=== PATIENT | male | born 1945 | race Caucasian/White ===

== ENCOUNTER 2018-05-10 17:33 | Inpatient (IN) | payer MEDICARE, OTHER ==
[~2018-05-10] VITALS: Ht 154.9 cm; Wt 64.0 kg
[2018-05-10] MEDS ORDERED: OLAN10TA3 PO (17:49)
[2018-05-10] MEDS ORDERED: TEMA7.5C2 PO (17:49)
[2018-05-10] MEDS ORDERED: LORA-258 PO (17:49)
[2018-05-10] MEDS ORDERED: DIVA250T4 PO (17:49)
[2018-05-10] MEDS ORDERED: ACET-2154 PO (17:49)
[2018-05-10] MEDS ORDERED: OLAN5TAB3 PO (17:49)
[2018-05-10] MEDS ORDERED: ACET325T53 PO (17:49)
[2018-05-10] MEDS ORDERED: LIDOCAINE 2% (UROJET) 10 ML JELLY MM ONE (17:55)
[2018-05-10] MEDS ORDERED: HYDROMORPHONE 2 MG/1 ML DISP.SYRIN ONE (17:58)
[2018-05-10 18:08] LABS: BASOPHILS % (AUTO) 0.5 % (0.0-2.0); EOSINOPHILS # (AUTO) 0.1 K/uL (0.0-0.7); EOSINOPHILS % (AUTO) 1.5 % (0.0-7.0); HEMATOCRIT 31.8 % (36.7-47.1); LYMPHOCYTES % (AUTO) 40.9 % (20.5-51.5); MEAN CORPUSCULAR HEMOGLOBIN 35.3 uug (23.8-33.4); MEAN CORPUSCULAR HGB CONC 35 g/dL (32.5-36.3); MEAN CORPUSCULAR VOLUME 101.6 fL (73.0-96.2); MONOCYTES # (AUTO) 0.4 K/uL (2.0-10.0); MONOCYTES % (AUTO) 8.3 % (0.0-11.0); NEUTROPHILS # (AUTO) 2.4 K/uL (1.8-8.9); NEUTROPHILS % (AUTO) 48.8 % (38.5-71.5); PLATELET COUNT (AUTO) 114 K/uL (152-348); RED BLOOD CELL COUNT(AUTO) 3.13 MIL/uL (4.06-5.63); WHITE BLOOD COUNT (AUTO) 4.9 K/uL (3.6-10.2)
[2018-05-10 18:12] LABS: CARBON DIOXIDE 28 mmol/L (21-32); CHLORIDE 104 mmol/L (98-107); CREATININE 1.1 mg/dL (0.6-1.3); GLUCOSE 91 mg/dL (74-106); UREA NITROGEN, BLOOD 17 mg/dL (7-18)
[2018-05-10 18:25] LABS: ACETAMINOPHEN < 2.0 ug/mL (10-30); ALANINE AMINOTRANSFERASE 21 U/L (16-63); ALKALINE PHOSPHATASE 54 U/L (50-136); ASPARTATE AMINOTRANSFERASE 18 U/L (15-37); BILIRUBIN,DIRECT 0.1 mg/dL (0.0-0.2); BILIRUBIN,TOTAL 0.4 mg/dL (0.2-1.0); TOTAL PROTEIN, SERUM 6.4 g/dL (6.4-8.2)
[2018-05-10 18:29] LABS: ETHANOL < 3 MG/DL (0-0)
--- NOTE | 2018-05-10 18:35 | NUR ---
[facility] provided for pt per request
--- NOTE | 2018-05-10 18:40 | NUR ---
pt transfered to mhu in stable condition
[2018-05-10 19:30] VITALS: BP 124/57
[2018-05-10] MEDS ORDERED: MAG HYDROX/AL HYDROX/SIMETH 30 ML LIQUID UDC PO PRN (20:15)
[2018-05-10] MEDS ORDERED: TEMAZEPAM 7.5 MG CAPSULE PO PRN (20:15)
[2018-05-10] MEDS ORDERED: ACETAMINOPHEN 325 MG TABLET PO PRN (20:15)
[2018-05-10] MEDS ORDERED: MAGNESIUM HYDROXIDE 30 ML LIQUID UDC PO PRN (20:15)
[2018-05-10] MEDS ORDERED: LORAZEPAM 0.5 MG TABLET PO PRN (20:15)
--- NOTE | 2018-05-10 22:00 | NUR ---
ADDENDUM/ pt was recently admitted to [facility] unit from 04/26 - 05/03/18.
--- NOTE | 2018-05-10 22:00 | NUR ---
received to care, at start of shift, a transfer from [facility], a transfer from the emergency room, on a 72 hour hold for DTO/gravely disabled. according to the hold, he has been "charging" into other residents with his wheelchair, despite attempts by staff, to redirect his behavior. he also eloped through the locked doors of his unit, and has no means of providing self care. pt has a history of schizophrenia and bipolar disorder, and is wheel chair bound, due to a right sided below the knee amputation, which happened when he was 22 y/o, while serving in the . upon arrival, he was pleasant. cooperative with interview and assessment, but refused to sign any papers. he stated the reason was his brother, maria antonia, is his conservator, and has to sign for him. (his brother was notified via telephone of the admission, and verified that he was the patients conservator, and stated he would bring the documentation in, tomorrow) pt had no recollection of why he was sent here, and even denied any knowledge of the reported incidents. after interview, he was assisted with a shower, and helped to bed. as of 2199, he remains asleep. no distress noted. will continue to monitor closely.
--- NOTE | 2018-05-11 05:30 | NUR ---
pt is now awake. slept 7.25 hours, total. currently watching tv. no distress noted.
[2018-05-11 07:19] LABS: BILIRUBIN,TOTAL 0.5 mg/dL (0.2-1.0); CREATININE 1.1 mg/dL (0.6-1.3); POTASSIUM 3.8 mmol/L (3.5-5.1); TOTAL PROTEIN, SERUM 6.8 g/dL (6.4-8.2)
[2018-05-11 08:00] VITALS: BP 146/69
[2018-05-11 16:01] VITALS: BP 108/44
[2018-05-11] MEDS: DIVALPROEX 250 MG TABLET.DR PO SCH (18:14)
[2018-05-11 19:30] VITALS: BP 132/57
[2018-05-11] MEDS: OLANZAPINE 5 MG TABLET PO SCH (21:14)
[2018-05-11] MEDS: DIVALPROEX 500 MG TABLET.DR PO SCH (21:14)
--- NOTE | 2018-05-11 22:00 | NUR ---
received to care, up in w/c, highly visible on unit, pleasant upon approach. no agitation or aggression, noted. interacts minimally with peers, but well with program staff. compliant with medications, and staff direction. as of 2199, he appears to be asleep, in bed. no distress noted. will continue to monitor closely.
--- NOTE | 2018-05-12 06:00 | NUR ---
slept 8.0 hours, total. continues to sleep. no distress noted.
[2018-05-12 08:00] VITALS: BP 122/86
[2018-05-12] MEDS: OLANZAPINE 5 MG TABLET PO SCH ×2 (08:54→21:04)
[2018-05-12] MEDS: DIVALPROEX 500 MG TABLET.DR PO SCH ×2 (08:54→21:04)
--- NOTE | 2018-05-12 11:31 | NUR ---
Initial DC Plan: Patient currently resides at [facility] [[address], [place] [address]; ]. Patient's brother/conservator Fuad [[phone]] stated he would like patient to return to his previous assisted living [facility] upon discharge. SW will follow up with MD, patient, and patient's brother to discuss most appropriate discharge plans. SW will form a safe and proper discharge.
[2018-05-12 16:00] VITALS: BP 122/57
[2018-05-12] MEDS: DIVALPROEX 250 MG TABLET.DR PO SCH (17:03)
--- NOTE | 2018-05-12 17:51 | NUR ---
Gps/Labor Training Manager- Had been cooperative and pleasant, compliance noted with his routine meds. making needs known, safety reviewed and emphasized.
[2018-05-12 20:20] VITALS: BP 120/58
--- NOTE | 2018-05-12 21:59 | NUR ---
received to care, asleep, in bed, but easy to awaken and arouse. compliant with medications, and staff direction. behavior is appropriate for the situation. as of 2158, he appears to be asleep. no distress noted. will continue to monitor closely.
--- NOTE | 2018-05-13 06:00 | NUR ---
slept 8 hours, total. is now awake. assisted with AM care, and shower. currently watching tv. remains calm, and compliant. no distress noted.
[2018-05-13 07:30] VITALS: BP 119/49
[2018-05-13 07:31] LABS: CREATININE 1.2 mg/dL (0.6-1.3); MAGNESIUM 1.6 mg/dL (1.8-2.4); POTASSIUM 3.8 mmol/L (3.5-5.1)
[2018-05-13 07:54] LABS: BASOPHILS % (AUTO) 0.3 % (0.0-2.0); EOSINOPHILS # (AUTO) 0.1 K/uL (0.0-0.7); EOSINOPHILS % (AUTO) 2.7 % (0.0-7.0); LYMPHOCYTES # (AUTO) 2.4 K/uL (20.0-40.0); LYMPHOCYTES % (AUTO) 50.5 % (20.5-51.5); MEAN CORPUSCULAR HEMOGLOBIN 35.3 uug (23.8-33.4); MEAN CORPUSCULAR HGB CONC 35 g/dL (32.5-36.3); MEAN CORPUSCULAR VOLUME 101.8 fL (73.0-96.2); MONOCYTES # (AUTO) 0.3 K/uL (2.0-10.0); MONOCYTES % (AUTO) 6.9 % (0.0-11.0); NEUTROPHILS # (AUTO) 1.9 K/uL (1.8-8.9); NEUTROPHILS % (AUTO) 39.6 % (38.5-71.5); PLATELET COUNT (AUTO) 122 K/uL (152-348); RED BLOOD CELL COUNT(AUTO) 3.52 MIL/uL (4.06-5.63); WHITE BLOOD COUNT (AUTO) 4.8 K/uL (3.6-10.2)
[2018-05-13 08:12] LABS: HEMATOCRIT 35.9 % (36.7-47.1); HEMOGLOBIN 12.4 g/dL (12.5-16.3)
[2018-05-13] MEDS: OLANZAPINE 5 MG TABLET PO SCH ×2 (08:30→20:23)
[2018-05-13] MEDS: DIVALPROEX 500 MG TABLET.DR PO SCH ×2 (08:30→20:23)
[2018-05-13] MEDS ORDERED: MAGNESIUM OXIDE 400 MG TABLET PO ONE (15:15)
[2018-05-13 15:26] VITALS: BP 119/49
[2018-05-13] MEDS: DIVALPROEX 250 MG TABLET.DR PO SCH (16:46)
--- NOTE | 2018-05-13 17:50 | NUR ---
Gps/Or Nurse Manager- Was able to take a nap this afternoon, was able to stay up for dinner, denies any discomfort, was in good spirit, singing in the dinning room, compliant with his routine med. no agitation noted.
[2018-05-13] MEDS: ATORVASTATIN 10 MG TABLET PO SCH (20:23)
[2018-05-13 21:02] VITALS: BP 114/56
--- NOTE | 2018-05-14 06:01 | NUR ---
GPS: Remain calm and cooperative with medications and care. assisted with adl's. no behavior problem noted. slept 8 hours, total. is now awake. assisted with AM care, and shower. no distress noted.
[2018-05-14 07:30] VITALS: BP 124/63
[2018-05-14] MEDS: DIVALPROEX 500 MG TABLET.DR PO SCH ×2 (09:07→20:52)
[2018-05-14] MEDS: OLANZAPINE 5 MG TABLET PO SCH ×2 (09:07→20:52)
[2018-05-14 16:53] VITALS: BP 126/73
[2018-05-14] MEDS: DIVALPROEX 250 MG TABLET.DR PO SCH (17:13)
--- NOTE | 2018-05-14 18:02 | NUR ---
[id number] labile and singing and talking politics up in wheel chair , continue to monitor for safety
[2018-05-14 20:00] VITALS: BP 117/72
[2018-05-14] MEDS: ATORVASTATIN 10 MG TABLET PO SCH (20:52)
--- NOTE | 2018-05-14 21:00 | NUR ---
PT EASILY AROUSABLE, RICKEY AND COOPERATIVE. TAKE MEDICATION. PT SHOWS NO SIGNS OF DISTRESS. WILL CONTINUE TO MONITOR.
--- NOTE | 2018-05-15 06:40 | NUR ---
PT SLEPT THROUGHOUT THE SHIFT. PT SHOWS NO SIGNS OF DISTRESS. PT CALM AND COOPERATIVE. SAFETY AND COMFORT PROVIDED. WILL ENDORSE TO DAYSHIFT NURSE.
[2018-05-15 07:30] VITALS: BP 110/60
[2018-05-15] MEDS: DIVALPROEX 500 MG TABLET.DR PO SCH ×2 (08:57→20:15)
[2018-05-15] MEDS: OLANZAPINE 5 MG TABLET PO SCH ×2 (08:58→20:15)
[2018-05-15 15:15] VITALS: BP 123/49
[2018-05-15] MEDS: DIVALPROEX 250 MG TABLET.DR PO SCH (16:49)
[2018-05-15 20:00] VITALS: BP 115/64
[2018-05-15] MEDS: ATORVASTATIN 10 MG TABLET PO SCH (20:15)
--- NOTE | 2018-05-15 20:50 | NUR ---
PT CALM, COOPERATIVE. COMPLIANT WITH MEDICATION. PT SLIGHTLY AGITATED WHEN TALKING ON THE PHONE.INTERACTS WHEN ENGAGED. PT SHOWS NO SIGNS OF DISTRESS. WILL CONTINUE TO MONITOR.
--- NOTE | 2018-05-16 05:44 | NUR ---
PT SLEPT THROUGHOUT THE SHIFT. PT SHOWS NO SIGNS OF DISTRESS. COMPLIANT WITH MEDICATION. SAFETY PROVIDED. WILL ENDORSE TO DAYSHIFT NURSE.
[2018-05-16 07:30] VITALS: BP_SYST 111; BP_SYST 98; BP_DIAS 49; BP_DIAS 61
[2018-05-16] MEDS: DIVALPROEX 500 MG TABLET.DR PO SCH ×2 (08:29→20:46)
[2018-05-16] MEDS: OLANZAPINE 5 MG TABLET PO SCH ×2 (08:29→20:46)
[2018-05-16 16:25] VITALS: BP 116/59
[2018-05-16] MEDS: DIVALPROEX 250 MG TABLET.DR PO SCH (18:22)
[2018-05-16 19:30] VITALS: BP 116/42
--- NOTE | 2018-05-16 19:50 | NUR ---
RECEIVED PATIENT IN HIS ROOM IN BED. HE IS NOTED A/O X 2, UNCOOPERATIVE, EASILY IRRITABLE, LOW MOOD, LABILE BX. BLUNTED AFFECT. REFUSED TO ANSWER QUESTIONS. HE ALSO STATED, "MEDICATIONS NEVER WORK FOR ME, HAVE NEVER WORK FOR ME". ATTEMPTED TO REASSURED, REDIRECT PATIENT; HOWEVER, HE STATED, "GO AWAY". SAFETY WAS EMPHASIS. WILL CONTINUE TO MONITOR CLOSELY.
[2018-05-16] MEDS: ATORVASTATIN 10 MG TABLET PO SCH (20:46)
[2018-05-17 07:30] VITALS: BP 122/48
[2018-05-17] MEDS: OLANZAPINE 5 MG TABLET PO SCH ×2 (08:24→21:07)
[2018-05-17] MEDS: DIVALPROEX 500 MG TABLET.DR PO SCH ×2 (08:24→21:07)
[2018-05-17 16:23] VITALS: BP 104/52
[2018-05-17] MEDS: DIVALPROEX 250 MG TABLET.DR PO SCH (16:33)
[2018-05-17 19:47] VITALS: BP 119/49
--- NOTE | 2018-05-17 20:00 | NUR ---
RECEIVED PATIENT IN HIS ROOM IN BED. HE IS NOTED ASLEEP BUT EASILY AROUSABLE. HE IS A/O X 2, WITHDRAWN, LOW MOOD, BLUNTED AFFECT. FAIR INSIGHT NOTED TO THE REAON FOR HIS ADMISSION. HE STATED, "I SHOULD NOT BE HERE, BUT I AM LEAVING WEDNESDAY". PATIENT REMAINS MEDICATION COMPLIANT AT THIS TIME. SAFETY WAS EMPHASIS. WILL CONTINUE TO MONITOR CLOSELY.
[2018-05-17] MEDS: ATORVASTATIN 10 MG TABLET PO SCH (21:07)
--- NOTE | 2018-05-18 06:30 | NUR ---
PT SLEPT FOR APPROX 8 HRS THROUGH THE NIGHT. NO AGGRESSIVE/COMBATIVE BX WAS NOTED DURING THE SHIFT. PT REMAINS COMPLIANT WITH MEDICATION REGIMENT, DIET AND PLAN OF CARE.
[2018-05-18 08:00] VITALS: BP 118/56
[2018-05-18] MEDS: OLANZAPINE 5 MG TABLET PO SCH ×2 (09:44→20:12)
[2018-05-18] MEDS: CHOLECALCIFEROL 400 UNITS TABLET PO SCH (09:44)
[2018-05-18] MEDS: DIVALPROEX 500 MG TABLET.DR PO SCH ×2 (09:44→20:12)
[2018-05-18 16:00] VITALS: BP 108/52
[2018-05-18] MEDS: DIVALPROEX 250 MG TABLET.DR PO SCH (17:14)
[2018-05-18 20:10] VITALS: BP 117/56
[2018-05-18] MEDS: ATORVASTATIN 10 MG TABLET PO SCH (20:12)
--- NOTE | 2018-05-18 22:00 | NUR ---
received to care, up in w/c, highly visible on unit, pleasant upon approach. compliant with medications, and staff direction. as of 2199, he appears to be asleep, in bed. no distress noted. will continue to monitor closely.
--- NOTE | 2018-05-19 06:00 | NUR ---
slept 6.5 hours, total. is now awake. assisted with AM care, and shower. currently watching tv. remains calm, and compliant. no distress noted.
--- NOTE | 2018-05-19 07:00 | NUR ---
RECEIVED PATIENT IN WHEELCHAIR, NO ACUTE DISTRESS NOTED. ALERT AND ORIENTED X 3, INDEPENDENT WITH MEALS AND ADLS. NO SI NOTED, COMPLIANT WITH MEDS AND CARE. NO S/S OF PYCH BEHAVIOR AT THIS TIME. COMFORT MEASURES PROVIDED,. SAFETY PRECS OBSERVED AT ALL TIMES WILL CONTINUE TO MONITOR CLOSELY.
[2018-05-19 07:30] VITALS: BP 127/70
[2018-05-19] MEDS: CHOLECALCIFEROL 400 UNITS TABLET PO SCH (08:03)
[2018-05-19] MEDS: DIVALPROEX 500 MG TABLET.DR PO SCH ×2 (08:03→20:49)
[2018-05-19] MEDS: OLANZAPINE 5 MG TABLET PO SCH ×2 (08:03→20:50)
[2018-05-19] MEDS: DIVALPROEX 250 MG TABLET.DR PO SCH (16:08)
[2018-05-19 16:22] VITALS: BP 112/60
--- NOTE | 2018-05-19 18:59 | NUR ---
PATIENT IN ACTIVITY ROOM, NO ACUTE DISTRESS NOTED. ATE DINNER, CONTINUES TO BE COMPLIANT WITH MEDICATION AND CARE. DENIES SI AT THIS TIME. ALL NEEDS ATTENDED AND ANTICIPATED. WILL CONTINUE TO MONITOR CLOSELY.
[2018-05-19] MEDS: ATORVASTATIN 10 MG TABLET PO SCH (20:50)
[2018-05-19 21:11] VITALS: BP 121/66
--- NOTE | 2018-05-19 22:00 | NUR ---
received to care, asleep, in bed, but easy to awaken and arouse. compliant with medications, bedtime snack, and staff direction. behavior is appropriate for the situation. as of 2200, he appears to be asleep. no distress noted. will continue to monitor closely.
--- NOTE | 2018-05-20 06:00 | NUR ---
slept 8.0 hours, total.
[2018-05-20 07:30] VITALS: BP 99/68
[2018-05-20] MEDS: DIVALPROEX 500 MG TABLET.DR PO SCH (08:13)
[2018-05-20] MEDS: OLANZAPINE 5 MG TABLET PO SCH (08:14)
[2018-05-20] MEDS: CHOLECALCIFEROL 400 UNITS TABLET PO SCH (08:14)
--- NOTE | 2018-05-20 11:50 | NUR ---
DC Note: Patient will be discharging to [facility] [[address] [place] [address]; ] via private transportation. SW spoke with Brooke [[phone]] from [facility] who confirmed patient has been accepted and will order picker patient around 4:30pm. Patient is aware and agreeable to discharge plans. Patient's brother/LPS Conservator Fuad [[phone]] is aware and agreeable to discharge plans. Patient will follow up with his coat joiner lockstitch Dr. Christine and psychiatrist Dr. Oswaldo West at the [facility] [[address] [address]; ]. Patient will also follow up with psychiatrist Dr. Rapp at [facility]. Patient was provided with additional outpatient mental health resources to [facility] , Lucy Barboza , and the National Suicide Prevention Lifeline .
--- NOTE | 2018-05-20 14:09 | NUR ---
Gps/Dental Detail Representative- Called [facility], spoked to Brooke, she claimed she does not need report, she has all the records and pertinent data for the patient, will be in to supervisor picking crew patient around 1630 -1700 , patient was informed.
[2018-05-20 15:39] VITALS: BP 135/60
--- NOTE | 2018-05-20 16:00 | NUR ---
Firearms Report: SIDDHARTHA submitted Mental Health Report to [facility]J on 05/20.
[2018-05-20] MEDS: DIVALPROEX 250 MG TABLET.DR PO SCH (16:22)
--- NOTE | 2018-05-20 16:50 | NUR ---
Gps/Raphael Cox from [facility] in to bead picker patient, all belongings given back to patient including $5.00 bill found in his chart . Discharged instructions reviewed with Brooke and patient informed of the prescriptions , both verbalized understanding. Patient in good spirit, no complaints noted.
== END 2018-05-20 16:50 | DRG 885 ==
LOC: ER 17:36 → GPS 18:34
PROVIDERS: ADMIT Psychiatry & Neurology Psychiatry; ATTEND Internal Medicine
DX: F31.9 Bipolar disorder, unspecified (principal); F20.9 Schizophrenia, unspecified; Z89.511 Acquired absence of right leg below knee; E83.42 Hypomagnesemia; E83.52 Hypercalcemia; E78.5 Hyperlipidemia, unspecified; D63.8 Anemia in other chronic diseases classified elsewhere; E55.9 Vitamin D deficiency, unspecified; F29 Unspecified psychosis not due to a substance or known physiological condition
CPT/HCPCS: 36415; 80164; 83735; 83970; 84100; 85025; A4663; G0480; G0480-TC; J1170; J3490

== ENCOUNTER 2019-03-22 18:06 | Inpatient (IN) | payer MEDICARE, OTHER ==
[~2019-03-22] VITALS: Ht 182.9 cm; Wt 76.2 kg
[~2019-03-22 18:06] MED LIST: ACET-2154 PO; ACET325T53 PO
[2019-03-22] MEDS ORDERED: IV NORMAL SALINE 1000 ML BAG IV ONE (18:30)
[2019-03-22] MEDS ORDERED: LEVOFLOXACIN 750MG/D5W 150 ML IV ONE ×2 (18:30→20:11)
[2019-03-22] MEDS ORDERED: PIPERACILLIN SODIUM/TAZOBACTAM 3.375 G in IV DEXTROSE 5% 50 ML IV ONE (18:30)
[2019-03-22] MEDS ORDERED: MULT1TAB73 PO (18:48)
[2019-03-22] MEDS ORDERED: DEXT15DR6 OP (18:48)
[2019-03-22] MEDS ORDERED: VITS42.53 TP (18:48)
[2019-03-22] MEDS ORDERED: ATOR20TA PO (18:48)
[2019-03-22] MEDS ORDERED: OLAN10TA3 PO (18:48)
[2019-03-22] MEDS ORDERED: CHOL100043 PO (18:48)
[2019-03-22] MEDS ORDERED: METO25TA6 PO (18:48)
[2019-03-22] MEDS ORDERED: DIVA-78 PO (18:48)
[2019-03-22] MEDS ORDERED: OMEG100037 PO (18:48)
[2019-03-22] MEDS ORDERED: OXYB5TAB11 PO (18:48)
[2019-03-22] MEDS ORDERED: LITH300T3 PO (18:48)
[2019-03-22] MEDS ORDERED: CLON1TAB12 PO (18:48)
[2019-03-22] MEDS ORDERED: POLY255P19 PO (18:48)
[2019-03-22] MEDS ORDERED: SENN1TAB33 PO (18:48)
[2019-03-22] MEDS ORDERED: PIPERACILLIN/TAZOBACTAM/D5W 50 ML IV ONE (18:50)
[2019-03-22 18:57] LABS: BASOPHILS % (AUTO) 0.1 % (0.0-2.0); CARBON DIOXIDE 28 mmol/L (21-32); CHLORIDE 104 mmol/L (98-107); CREATININE 1.3 mg/dL (0.6-1.3); GLUCOSE 106 mg/dL (74-106); HEMATOCRIT 35.5 % (36.7-47.1); HEMOGLOBIN 11.9 g/dL (12.5-16.3); LYMPHOCYTES # (AUTO) 1.3 K/uL (20.0-40.0); LYMPHOCYTES % (AUTO) 15.6 % (20.5-51.5); MEAN CORPUSCULAR HEMOGLOBIN 35.1 uug (23.8-33.4); MEAN CORPUSCULAR HGB CONC 34 g/dL (32.5-36.3); MEAN CORPUSCULAR VOLUME 104.8 fL (73.0-96.2); MONOCYTES # (AUTO) 0.8 K/uL (2.0-10.0); MONOCYTES % (AUTO) 10.1 % (0.0-11.0); NEUTROPHILS # (AUTO) 6.1 K/uL (1.8-8.9); NEUTROPHILS % (AUTO) 74.2 % (38.5-71.5); PLATELET COUNT (AUTO) 59 K/uL (152-348); POTASSIUM 4.4 mmol/L (3.5-5.1); RED BLOOD CELL COUNT(AUTO) 3.39 MIL/uL (4.06-5.63); UREA NITROGEN, BLOOD 23 mg/dL (7-18); WHITE BLOOD COUNT (AUTO) 8.2 K/uL (3.6-10.2)
[2019-03-22 19:12] LABS: ALANINE AMINOTRANSFERASE 22 U/L (16-63); ALKALINE PHOSPHATASE 54 U/L (50-136); ASPARTATE AMINOTRANSFERASE 15 U/L (15-37); BILIRUBIN,DIRECT 0.2 mg/dL (0.0-0.2); BILIRUBIN,TOTAL 0.7 mg/dL (0.2-1.0); TOTAL PROTEIN, SERUM 6.6 g/dL (6.4-8.2)
[2019-03-22 19:23] LABS: NEUTROPHILS % (MANUAL) 63 % (42-75)
[2019-03-22 19:24] LABS: BAND % (MANUAL) 9 % (0-10); LYMPHOCYTES % (MANUAL) 17 % (20-40); MONOCYTES % (MANUAL) 11 % (2-10)
[2019-03-22 21:28] LABS: *BILIRUBIN,URIN NEGATIVE (NEGATIVE); *BLOOD, URINE 2+ (NEGATIVE); *CLARITY,URINE CLEAR (CLEAR); *COLOR,URINE YELLOW (YELLOW); *KETONES,URINE NEGATIVE (NEGATIVE); *UROBILINOGEN,URINE 0.2 E.U./dl (NORMAL); LEUKOCYTE ESTERASE ,URINE NEGATIVE (NEGATIVE); NITRITE, URINE NEGATIVE (NEGATIVE); PH,URINE 7.5 (5.0-8.0); UGLUCOSE NEGATIVE (NEGATIVE)
[2019-03-22 21:43] LABS: SQUAMOUS EPITHELIAL CELL,UR FEW /HPF (NONE SEEN); WBC,URINE 0-3 /HPF (0-3)
--- NOTE | 2019-03-22 22:01 | NUR ---
Called Gurpreet nurse from [facility] . Gurpreet states patient was sent here poor appetite and wt. lost
--- NOTE | 2019-03-23 00:11 | NUR ---
Transfered to 3rd floor Med surg via jordyn
[2019-03-23 00:26] VITALS: BP 108/46
--- NOTE | 2019-03-23 00:30 | NUR ---
Pt arrived in unit via gurney accompanied by x1 ER staff at 0005. A&O to himself and his brother. Verbally responsive and able to follow simple commands. On RA, no resp distress noted. Bowel sounds active, per pt BM current. No edema. Head to to assessment completed. AROM to BUE, right BKA stump (20 yrs old per pt), LLE with severe weakness. Slight redness noted to R BKA stump, scabbed over abrasion to left garrison, and mult skin discoloration to left AC. Will monitor for adverse changes. RFA 22g IV site in place and patent. Oriented pt to unit, staff, room, call light, and board. Spoke with Fuad Shore and informed him of pt's admission to unit. All safety precautions in place. Will cont to monitor.
--- NOTE | 2019-03-23 01:00 | NUR ---
Telephone call to [facility] [phone]. Spoke with [employer] who stated to call back in am to follow up regarding patient's immunization status.
[2019-03-23] MEDS ORDERED: OLANZAPINE 5 MG TABLET PO SCH (02:00)
[2019-03-23] MEDS ORDERED: PIPERACILLIN/TAZOBACTAM/D5W 50 ML IV SCH (02:00)
[2019-03-23] MEDS ORDERED: HYDROCODONE/APAP 10-325 MG TABLET PO PRN (02:00)
[2019-03-23] MEDS ORDERED: SENNOSIDES/DOCUSATE SODIUM TABLET PO PRN (02:00)
[2019-03-23] MEDS ORDERED: ACETAMINOPHEN 325 MG TABLET PO PRN (02:00)
[2019-03-23] MEDS ORDERED: Z GUARD REMEDY PASTE 57 GM TUBE TOP PRN (02:00)
[2019-03-23] MEDS ORDERED: ONDANSETRON 4 MG/2 ML VIAL IV PRN (02:00)
[2019-03-23] MEDS: IV NS 1000 ML 1,000 ML IV PRN ×2 (02:26→16:17)
[2019-03-23] MEDS ORDERED: PIPERACILLIN/TAZOBACTAM/D5W 50 ML IV ONE ×2 (02:30→02:55)
[2019-03-23 04:59] VITALS: BP 101/46
[2019-03-23 06:35] LABS: BASOPHILS % (AUTO) 0.1 % (0.0-2.0); EOSINOPHILS % (AUTO) 0.1 % (0.0-7.0); HEMATOCRIT 30.7 % (36.7-47.1); HEMOGLOBIN 10.3 g/dL (12.5-16.3); LYMPHOCYTES # (AUTO) 1.4 K/uL (20.0-40.0); MONOCYTES # (AUTO) 0.5 K/uL (2.0-10.0); WHITE BLOOD COUNT (AUTO) 5.7 K/uL (3.6-10.2)
[2019-03-23 06:38] LABS: LYMPHOCYTES % (AUTO) 25.3 % (20.5-51.5); MEAN CORPUSCULAR HEMOGLOBIN 35.5 uug (23.8-33.4); MEAN CORPUSCULAR HGB CONC 34 g/dL (32.5-36.3); MEAN CORPUSCULAR VOLUME 105.6 fL (73.0-96.2); MONOCYTES % (AUTO) 8.1 % (0.0-11.0); NEUTROPHILS # (AUTO) 3.8 K/uL (1.8-8.9); NEUTROPHILS % (AUTO) 66.4 % (38.5-71.5)
--- NOTE | 2019-03-23 06:45 | NUR ---
Pt in bed asleep, easily arousable to name. No s/s of acute distress noted. No adverse side effects noted to Zosyn IV and Olanzapine. RFA IV site in place and patent, infusing NS @75ml/hr and [place] well. Labs drawn as ordered. Pending results. All safety precautions in place. Will endorse to oncoming shift.
[2019-03-23 06:50] LABS: CARBON DIOXIDE 26 mmol/L (21-32); CHLORIDE 111 mmol/L (98-107); CREATININE 1.2 mg/dL (0.6-1.3); GLUCOSE 88 mg/dL (74-106); MAGNESIUM 1.8 mg/dL (1.8-2.4); PHOSPHOROUS 2.6 mg/dL (2.5-4.9); POTASSIUM 4.4 mmol/L (3.5-5.1); UREA NITROGEN, BLOOD 19 mg/dL (7-18)
[2019-03-23 06:54] LABS: PLATELET COUNT (AUTO) 48 K/uL (152-348)
[2019-03-23 07:07] LABS: CREATINE KINASE, TOTAL 25 U/L (39-308); VALPROIC ACID 56 ug/mL (50-100)
--- NOTE | 2019-03-23 07:27 | NUR ---
Rec'd call from [facility] at [phone], member with CL PLT 48. Asymptomatic at this time. Endorsed to ROSALINO Langford.
[2019-03-23 07:34] LABS: LYMPHOCYTES % (MANUAL) 25 % (20-40); NEUTROPHILS % (MANUAL) 67 % (42-75)
[2019-03-23 07:35] LABS: MONOCYTES % (MANUAL) 8 % (2-10)
[2019-03-23] MEDS: DIVALPROEX 500 MG TABLET.DR PO SCH ×2 (08:07→16:11)
[2019-03-23] MEDS: CHOLECALCIFEROL 1,000 UNIT TABLET PO SCH (08:08)
[2019-03-23] MEDS: OXYBUTYNIN CHLORIDE 5 MG TABLET PO SCH ×2 (08:08→16:11)
[2019-03-23] MEDS: METOPROLOL TARTRATE 25 MG TABLET PO SCH ×2 (08:13→16:11)
[2019-03-23 11:58] VITALS: BP 114/49
[2019-03-23 15:43] VITALS: BP 112/53
[2019-03-23] MEDS: PIPERACILLIN/TAZOBACTAM/D5W 3.375 G in PREMIXED 1 EACH IV SCH ×2 (16:32→23:53)
--- NOTE | 2019-03-23 19:40 | NUR ---
RECEIVED PT AWAKE, ALERT AND ORIENTEDX3. PT SHOWS NO SIGNS OF ACUTE DISTRESS. PT IV INTACT. PT COMPLIANT WITH CARE. PT PLEASANT WHEN APPROACH. SAFETY AND COMFORT PROVIDED. WILL CONTINUE TO MONITOR.
[2019-03-23 20:00] VITALS: BP 108/42
[2019-03-23] MEDS: ATORVASTATIN 20 MG TABLET PO SCH (20:38)
[2019-03-23] MEDS: OLANZAPINE 5 MG TABLET PO SCH (20:38)
[2019-03-23] MEDS ORDERED: LITHIUM CARBONATE 300 MG CAPSULE PO SCH (21:00)
[2019-03-24 04:47] VITALS: BP 107/51
--- NOTE | 2019-03-24 06:23 | NUR ---
PT SLEPT INTERMITTENTLY. PT SHOWS NO SIGNS OF ACUTE DISTRESS. PT IV INTACT. SAFETY AND COMFORT PROVIDED. WILL CONTINUE TO MONITOR.
[2019-03-24 06:47] LABS: EOSINOPHILS # (AUTO) 0.1 K/uL (0.0-0.7); HEMOGLOBIN 10.9 g/dL (12.5-16.3); MEAN CORPUSCULAR VOLUME 105.4 fL (73.0-96.2); MONOCYTES # (AUTO) 0.4 K/uL (2.0-10.0); MONOCYTES % (AUTO) 7.5 % (0.0-11.0); NEUTROPHILS # (AUTO) 2.6 K/uL (1.8-8.9); WHITE BLOOD COUNT (AUTO) 4.8 K/uL (3.6-10.2)
[2019-03-24 06:55] LABS: BASOPHILS % (AUTO) 0.2 % (0.0-2.0); EOSINOPHILS % (AUTO) 1.4 % (0.0-7.0); HEMATOCRIT 32.5 % (36.7-47.1); LYMPHOCYTES # (AUTO) 1.8 K/uL (20.0-40.0); LYMPHOCYTES % (AUTO) 36.7 % (20.5-51.5); MEAN CORPUSCULAR HEMOGLOBIN 35.5 uug (23.8-33.4); MEAN CORPUSCULAR HGB CONC 34 g/dL (32.5-36.3); NEUTROPHILS % (AUTO) 54.2 % (38.5-71.5); RED BLOOD CELL COUNT(AUTO) 3.08 MIL/uL (4.06-5.63)
[2019-03-24 06:56] LABS: PLATELET COUNT (AUTO) 61 K/uL (152-348)
[2019-03-24 06:58] LABS: CARBON DIOXIDE 28 mmol/L (21-32); CHLORIDE 112 mmol/L (98-107); CREATININE 1.2 mg/dL (0.6-1.3); GLUCOSE 82 mg/dL (74-106); POTASSIUM 4.6 mmol/L (3.5-5.1); UREA NITROGEN, BLOOD 16 mg/dL (7-18)
[2019-03-24] MEDS: PIPERACILLIN/TAZOBACTAM/D5W 3.375 G in PREMIXED 1 EACH IV SCH ×3 (07:39→23:04)
[2019-03-24] MEDS: DIVALPROEX 500 MG TABLET.DR PO SCH ×2 (08:09→16:25)
[2019-03-24] MEDS: OXYBUTYNIN CHLORIDE 5 MG TABLET PO SCH ×2 (08:09→16:25)
[2019-03-24] MEDS: METOPROLOL TARTRATE 25 MG TABLET PO SCH ×2 (08:09→16:25)
[2019-03-24] MEDS: CHOLECALCIFEROL 1,000 UNIT TABLET PO SCH (08:09)
[2019-03-24 08:58] LABS: THYROID STIMULATING HORMONE 4.776 mIU/mL (0.358-3.740)
[2019-03-24] MEDS: IV NS 1000 ML 1,000 ML IV PRN (11:05)
[2019-03-24 11:49] VITALS: BP 119/53
[2019-03-24 12:07] LABS: *ANTI-SCLERODERMA-70 AB <0.2 AI (0.0-0.9); *SJOGREN'S ANTI-SS-A <0.2 AI (0.0-0.9); *SJOGREN'S ANTI-SS-B <0.2 AI (0.0-0.9); *SMITH ANTIBODIES <0.2 AI (0.0-0.9); ANTI-DNA(DS) AB, QN <1 IU/mL (0-9)
[2019-03-24] MEDS: CLONAZEPAM 1 MG TABLET PO PRN ×2 (12:52→22:38)
[2019-03-24 15:10] VITALS: BP 124/58
--- NOTE | 2019-03-24 19:20 | NUR ---
RECEIVED PT AWAKE, ALERT AND ORIENTEDX3. PT HAVE FLIGHT OF IDEAS BUT PLEASANT WHEN APPROACHED. PT SHOWS NO SIGNS OF ACUTE DISTRESS. PT IV INTACT. SAFETY AND COMFORT PROVIDED. WILL CONTINUE TO MONITOR.
[2019-03-24 19:57] VITALS: BP 137/85
[2019-03-24] MEDS: OLANZAPINE 5 MG TABLET PO SCH (20:28)
[2019-03-24] MEDS: ATORVASTATIN 20 MG TABLET PO SCH (20:28)
[2019-03-25] MEDS: IV NS 1000 ML 1,000 ML IV PRN (04:57)
[2019-03-25 05:39] VITALS: BP 102/43
--- NOTE | 2019-03-25 06:00 | NUR ---
PT SLEPT THROUGHOUT THE SHIFT. PT SHOWS NO SIGNS OF ACUTE DISTRESS. IV INTACT.PT GIVEN KLONOPIN AT 2238H BECAUSE PT TRYING TO GET OUT OF THE BED, PT AGITATED. PT BEHAVIOUR IMPROVED. PT TOLERATED IT WELL. PRESCRIBED MEDICATION GIVEN AND PT TOLERATED IT WELL. CALL LIGHT WITHIN REACH. SAFETY AND COMFORT PROVIDED. WILL ENDORSE ACCORDINGLY TO INCOMING NURSE FOR CONTINUITY OF CARE.
[2019-03-25] MEDS: PIPERACILLIN/TAZOBACTAM/D5W 3.375 G in PREMIXED 1 EACH IV SCH ×2 (07:37→16:55)
[2019-03-25 08:20] VITALS: BP 157/75
[2019-03-25] MEDS: OXYBUTYNIN CHLORIDE 5 MG TABLET PO SCH ×2 (08:23→17:00)
[2019-03-25] MEDS: CHOLECALCIFEROL 1,000 UNIT TABLET PO SCH (08:23)
[2019-03-25] MEDS: DIVALPROEX 500 MG TABLET.DR PO SCH ×2 (08:23→16:55)
[2019-03-25] MEDS: METOPROLOL TARTRATE 25 MG TABLET PO SCH ×2 (08:33→16:58)
--- NOTE | 2019-03-25 10:16 | NUR ---
PT COMPLIANT WITH CARE. PT ATE HIS LUNCH 75% . PT SHOWS NO SIGNS OF ACUTE DISTRESS. IV INTACT. PRESCRIBED MEDICATION GIVEN AND PT TOLERATED IT WELL. SAFETY AND COMFORT PROVIDED. WILL ENDORSE ACCORDINGLY TO INCOMING NURSE FOR CONTINUITY OF CARE.
[2019-03-25 11:10] VITALS: BP 109/48
--- NOTE | 2019-03-25 11:15 | NUR ---
RECEIVED PT (FROM [facility]) SLEEPING. PT SHOWS NO SIGNS OF ACUTE DISTRESS. PT IV INTACT & INFUSING. VSS. SAFETY AND COMFORT PROVIDED. WILL CONTINUE TO MONITOR.
[2019-03-25 11:51] VITALS: BP 109/78
[2019-03-25 15:15] VITALS: BP 103/48
--- NOTE | 2019-03-25 19:45 | NUR ---
RECEIVED PT FROM THE DAY SHIFT. PATIENT IS AWAKE ORIENTED X2. PT SHOWS NO SIGNS OF ACUTE DISTRESS. PATIENT IV IS INTACT & RUNNING. SAFETY AND COMFORT PROVIDED. WILL CONTINUE TO MONITOR.
[2019-03-25 20:38] VITALS: BP 93/46
[2019-03-25] MEDS: ATORVASTATIN 20 MG TABLET PO SCH (21:33)
[2019-03-25] MEDS: OLANZAPINE 5 MG TABLET PO SCH (21:34)
[2019-03-26] MEDS: PIPERACILLIN/TAZOBACTAM/D5W 3.375 G in PREMIXED 1 EACH IV SCH ×3 (00:09→16:21)
[2019-03-26] MEDS: IV NS 1000 ML 1,000 ML IV PRN ×2 (04:15→17:04)
[2019-03-26 05:17] VITALS: BP 126/44
--- NOTE | 2019-03-26 07:20 | NUR ---
RECEIVED PATIENT ASLEEP ON BED, NO ACUTE DISTRESS NOTED AAOX2. W/ RIGHT BKA. IV ACCESS ON LEFT HAND #22 INTACT AND PATENT RUNNING NS @75 CC/HR INFUSAING WELL. PATIENT HAS EPISODES OF CONFUSION, AGITATION. PER RESERVATIONS SPECIALIST BUT REDIRECTABLE. APPEARS COMFORTABLE. SAFETY PRECS OBSERVED AT ALL TIMES. CALL LIGHT WITHIN REACH. WILL COTNINUE TO MONITOR CLOSELY.
[2019-03-26] MEDS: OXYBUTYNIN CHLORIDE 5 MG TABLET PO SCH ×2 (08:41→17:56)
[2019-03-26] MEDS: DIVALPROEX 500 MG TABLET.DR PO SCH ×2 (08:41→17:56)
[2019-03-26] MEDS: CHOLECALCIFEROL 1,000 UNIT TABLET PO SCH (08:41)
[2019-03-26] MEDS: METOPROLOL TARTRATE 25 MG TABLET PO SCH ×2 (09:00→17:56)
[2019-03-26 11:40] VITALS: BP 126/50
[2019-03-26 15:10] VITALS: BP 96/43
--- NOTE | 2019-03-26 18:54 | NUR ---
PATIENT REMAINED STABLE THROUGHOUT SHIFT.IVF INFUSING WELL. NO COMPLAINTS OF PAIN/DISCOMFORT AT THIS TIME. VITAL SIGNS STABLE. ALL NEEDS ATTENDED AND ANTICIPATED. CALL LIGHT WITHIN REACH. WILL CONTINUE TO MONITOR CLOSELY.
[2019-03-26 20:09] VITALS: BP 100/80
[2019-03-26] MEDS: OLANZAPINE 5 MG TABLET PO SCH (20:59)
[2019-03-26] MEDS: ATORVASTATIN 20 MG TABLET PO SCH (20:59)
[2019-03-27] MEDS: PIPERACILLIN/TAZOBACTAM/D5W 3.375 G in PREMIXED 1 EACH IV SCH ×3 (00:12→16:38)
[2019-03-27 05:55] VITALS: BP 110/72
[2019-03-27] MEDS: IV NS 1000 ML 1,000 ML IV PRN (06:18)
--- NOTE | 2019-03-27 07:15 | NUR ---
PATIENT IN BED LAYING COMFORTABLY, IV ON LEFT INTACT AND PATENT, IVF INFUSING WELL. NO COMPLAINTS OF PAIN OR DISCOMFORT AT THIS TIME. BED POSITION IN LOW AND SIDE RAILS UP AND BED ALARM ON. CALL LIGHT WITHIN REACH. WILL CONTINUE TO MONITOR .
[2019-03-27] MEDS: DIVALPROEX 500 MG TABLET.DR PO SCH ×2 (08:49→16:40)
[2019-03-27] MEDS: CHOLECALCIFEROL 1,000 UNIT TABLET PO SCH (08:49)
[2019-03-27] MEDS: OXYBUTYNIN CHLORIDE 5 MG TABLET PO SCH ×2 (08:49→16:40)
[2019-03-27] MEDS: METOPROLOL TARTRATE 25 MG TABLET PO SCH ×2 (08:56→16:40)
[2019-03-27 11:34] VITALS: BP 124/53
[2019-03-27 15:23] VITALS: BP 100/52
[2019-03-27 16:40] VITALS: BP 100/52
[2019-03-27] MEDS ORDERED: HYDR-4354 PO (20:30)
== END 2019-03-27 18:51 | DRG 641 ==
LOC: ER 18:09 → MEDSURG3 23:33
PROVIDERS: ADMIT Nurse Practitioner Acute Care
DX: R62.7 Adult failure to thrive (principal); J98.11 Atelectasis; D53.9 Nutritional anemia, unspecified; Z68.22 Body mass index [BMI] 22.0-22.9, adult; R50.9 Fever, unspecified; D69.6 Thrombocytopenia, unspecified; Z89.511 Acquired absence of right leg below knee; F25.0 Schizoaffective disorder, bipolar type; N18.3 Chronic kidney disease, stage 3 (moderate); I70.0 Atherosclerosis of aorta; E88.09 Other disorders of plasma-protein metabolism, not elsewhere classified; Z79.899 Other long term (current) drug therapy
CPT/HCPCS: 36415; 70030-TC; 71045; 80164; 83550; 83605; 83735; 84100; 84443; 85025; 85651; 85730; 86038; 87040; 87086; 87400; 93005; 93307; 97110; 97116; 97165; 97530; A4663; C1758; G0378; J1956; J2543; J7030

== ENCOUNTER 2019-03-27 20:20 | Inpatient (IN) | payer MEDICARE, OTHER ==
[~2019-03-27] VITALS: Ht 180.3 cm; Wt 64.0 kg
[2019-03-27 20:00] VITALS: BP 97/43
[~2019-03-27 20:20] MED LIST changes: +ATOR20TA PO; +CHOL100043 PO; +CLON1TAB12 PO; +DEXT15DR6 OP; +DIVA-78 PO; +LITH300T3 PO; +METO25TA6 PO; +MULT1TAB73 PO; +OLAN10TA3 PO; +OMEG100037 PO; +OXYB5TAB11 PO; +POLY255P19 PO; +SENN1TAB33 PO; +VITS42.53 TP
[2019-03-27] MEDS ORDERED: HYDR-4354 PO (20:30)
[2019-03-27] MEDS ORDERED: Z GUARD REMEDY PASTE 57 GM TUBE TOP PRN (20:30)
--- NOTE | 2019-03-27 22:14 | NUR ---
Admitting this 73 y/o male from 3rd floor [facility] med-surg, diagnosis of Parkinson's Disease. AAO x 2-3 with some forgetfulness. Verbally responsive and able to make needs known. Denies pain or discomfort at this time. Incontinent of B&B. Routine admission care done. Oriented to room and unit. Dr. King aware of pt admission. MD Cuevas paged for med recon ([id number]), awaiting call back. Noted with scab on left garirson, picture taken and placed in chart. Noted with right BKA, brought in prosthetic to use for ambulation with therapy. All safety measures and fall precautions maintained. Call light and all personal belongings within reach. MRSA swab done and sent to lab. Will continue to monitor.
[2019-03-28 04:30] VITALS: BP 128/49
[2019-03-28 07:00] VITALS: BP 137/59
[2019-03-28] MEDS ORDERED: ACETAMINOPHEN 325 MG TABLET PO PRN ×2 (10:30)
[2019-03-28] MEDS ORDERED: POLYETHYLENE GLYCOL 3350 238 GM POWDER PO PRN (10:30)
[2019-03-28] MEDS ORDERED: CLONAZEPAM 1 MG TABLET PO PRN (10:30)
[2019-03-28] MEDS ORDERED: METOPROLOL TARTRATE 25 MG TABLET PO SCH (10:30)
[2019-03-28] MEDS ORDERED: HYDROCODONE/APAP 10-325 MG TABLET PO PRN (10:30)
[2019-03-28] MEDS ORDERED: VITAMINS A AND D OINT TP PRN (10:30)
[2019-03-28] MEDS: METOPROLOL TARTRATE 25 MG TABLET PO SCH ×2 (11:08→21:00)
[2019-03-28] MEDS: DIVALPROEX 500 MG TABLET.DR PO SCH ×2 (11:26→16:32)
[2019-03-28] MEDS: OXYBUTYNIN CHLORIDE 5 MG TABLET PO SCH ×2 (11:27→16:33)
--- NOTE | 2019-03-28 14:34 | NUR ---
Pt received this morning, AAOx2-3 with slight forgetfulness. Pt assessed, denies pain, no acute distress, or SOB evident. completed Med Recon, Pt compliant with routine medication administration, VSS but BP medication held r/t decreased BP of 97/55. Pt teaching provided. Pt cooperative with therapies as offered. Pt showered with therapist assistance. Bed in locked and lowest position with side rails up x2. All comfort and safety measures in place. Plan of care discussed with Pt. Call light and personal belongings, including Right leg prosthetic within reach. Will continue to monitor.
[2019-03-28 16:04] VITALS: BP 103/63
[2019-03-28 20:01] VITALS: BP 102/65
[2019-03-28] MEDS ORDERED: LITHIUM CARBONATE 450 MG PO SCH (21:00)
[2019-03-28] MEDS: SENNOSIDES/DOCUSATE SODIUM TABLET PO SCH (21:18)
[2019-03-28] MEDS: OLANZAPINE 5 MG TABLET PO SCH (21:19)
[2019-03-28 21:29] VITALS: BP 99/34
[2019-03-29 07:50] VITALS: BP 103/53
[2019-03-29] MEDS: CHOLECALCIFEROL 1,000 UNIT TABLET PO SCH (08:47)
[2019-03-29] MEDS: DIVALPROEX 500 MG TABLET.DR PO SCH ×2 (08:49→16:20)
[2019-03-29] MEDS: OXYBUTYNIN CHLORIDE 5 MG TABLET PO SCH ×2 (08:49→16:21)
[2019-03-29] MEDS: MULTIVITAMINS,THERAPEUTIC TABLET PO SCH (08:49)
[2019-03-29] MEDS: METOPROLOL TARTRATE 25 MG TABLET PO SCH ×2 (08:53→20:03)
[2019-03-29] MEDS ORDERED: Medication Not On Formulary EA (Multivitamins (Multivitamin) 1 EACH) PO SCH (09:00)
--- NOTE | 2019-03-29 14:12 | NUR ---
SBAR report received this morning. Pt assessed, AAOx2-3 with forgetfulness, denies pain and NAD. Pt cooperative with all routine medication administration. BP medication held due to decreased BP of 103/53, HR 80. Plan of care discussed including goal to actively participate with therapies as offer. Bed in locked and lowest position, with side rails up x2, bed alarm on. All safety and comfort measures implemented. Personal items and call light placed within reach. Assisted Pt to contact brother on phone. Will continue to monitor.
[2019-03-29 16:28] VITALS: BP 109/64
--- NOTE | 2019-03-29 16:58 | NUR ---
Learning Services Coordinator assessment completed today.
--- NOTE | 2019-03-29 19:25 | NUR ---
Pt rec'd in bed awake, watching TV. AAOx2-3 with slight forgetfulness. Pt assessed, denies pain, no acute distress, or SOB noted. Pt verbalized he did all his therapies today and tolerated well. Bed in locked and lowest position with side rails up x2. All comfort and safety measures in place. Plan of care discussed with Pt. Call light and personal belongings, including Right leg prosthetic within reach. Will cont to monitor.
[2019-03-29] MEDS: OLANZAPINE 5 MG TABLET PO SCH (20:03)
[2019-03-29] MEDS: SENNOSIDES/DOCUSATE SODIUM TABLET PO SCH (20:03)
[2019-03-29 20:37] VITALS: BP 126/68
[2019-03-30 05:59] VITALS: BP 121/78
--- NOTE | 2019-03-30 06:30 | NUR ---
Pt in bed asleep, easily arousable to name. Slept well over night. No s/s of acute distress noted. All safety precautions in place. Call light and personal belongings in place. Will endorse to oncoming to shift.
[2019-03-30 07:50] VITALS: BP 109/42
[2019-03-30] MEDS: OXYBUTYNIN CHLORIDE 5 MG TABLET PO SCH ×2 (08:46→17:15)
[2019-03-30] MEDS: CHOLECALCIFEROL 1,000 UNIT TABLET PO SCH (08:46)
[2019-03-30] MEDS: MULTIVITAMINS,THERAPEUTIC TABLET PO SCH (08:46)
[2019-03-30] MEDS: DIVALPROEX 500 MG TABLET.DR PO SCH ×2 (08:46→17:14)
[2019-03-30] MEDS: METOPROLOL TARTRATE 25 MG TABLET PO SCH ×2 (08:47→21:11)
--- NOTE | 2019-03-30 13:30 | NUR ---
INDIVIDUALIZED OVERALL PLAN OF CARE
[2019-03-30 16:21] VITALS: BP 118/42
[2019-03-30 20:29] VITALS: BP 128/70
[2019-03-30] MEDS: SENNOSIDES/DOCUSATE SODIUM TABLET PO SCH ×2 (21:00→21:11)
[2019-03-30] MEDS: OLANZAPINE 5 MG TABLET PO SCH (21:22)
[2019-03-31 06:39] VITALS: BP 115/65
[2019-03-31 07:45] VITALS: BP 107/35
[2019-03-31] MEDS: METOPROLOL TARTRATE 25 MG TABLET PO SCH ×2 (09:00→21:15)
[2019-03-31] MEDS: DIVALPROEX 500 MG TABLET.DR PO SCH ×2 (09:29→17:43)
[2019-03-31] MEDS: OXYBUTYNIN CHLORIDE 5 MG TABLET PO SCH ×2 (09:29→17:44)
[2019-03-31] MEDS: CHOLECALCIFEROL 1,000 UNIT TABLET PO SCH (09:30)
[2019-03-31] MEDS: MULTIVITAMINS,THERAPEUTIC TABLET PO SCH (09:30)
--- NOTE | 2019-03-31 13:30 | NUR ---
INTERDISCIPLINARY TEAM CONFERENCE
[2019-03-31 15:20] VITALS: BP 117/42
--- NOTE | 2019-03-31 19:35 | NUR ---
patient is found in bed, watching TV, good mood, cooperative. will continue to monitor. Comfort and safety provided.
[2019-03-31 21:00] VITALS: BP 119/63
[2019-03-31] MEDS: SENNOSIDES/DOCUSATE SODIUM TABLET PO SCH (21:15)
[2019-03-31] MEDS: OLANZAPINE 5 MG TABLET PO SCH (21:16)
[2019-04-01 05:49] VITALS: BP 100/53
--- NOTE | 2019-04-01 06:53 | NUR ---
patient slept all night, used a urinal twice. Did not complain of pain, no acute distress noted. Continues to sleep in his bed. Comfort and safety provided.
--- NOTE | 2019-04-01 07:30 | NUR ---
Received a 73 Y/o male pt as a case of Parkinson's, pt is PEPITO. Breathing via room air. has RT below Knee amputation uses prosthetic, all safety measures provided, will continue to monitor.
[2019-04-01 08:00] VITALS: BP 119/55
[2019-04-01] MEDS: METOPROLOL TARTRATE 25 MG TABLET PO SCH ×2 (08:35→20:19)
[2019-04-01] MEDS: CHOLECALCIFEROL 1,000 UNIT TABLET PO SCH (08:36)
[2019-04-01] MEDS: DIVALPROEX 500 MG TABLET.DR PO SCH ×2 (08:36→16:52)
[2019-04-01] MEDS: MULTIVITAMINS,THERAPEUTIC TABLET PO SCH (08:36)
[2019-04-01] MEDS: OXYBUTYNIN CHLORIDE 5 MG TABLET PO SCH ×2 (08:37→16:52)
[2019-04-01 08:39] LABS: BASOPHILS % (AUTO) 0.7 % (0.0-2.0); EOSINOPHILS # (AUTO) 0.1 K/uL (0.0-0.7); HEMATOCRIT 33.6 % (36.7-47.1); HEMOGLOBIN 11.4 g/dL (12.5-16.3); LYMPHOCYTES # (AUTO) 2.1 K/uL (20.0-40.0); MEAN CORPUSCULAR HEMOGLOBIN 35.2 uug (23.8-33.4); MEAN CORPUSCULAR HGB CONC 34 g/dL (32.5-36.3); MEAN CORPUSCULAR VOLUME 104.3 fL (73.0-96.2); MONOCYTES # (AUTO) 0.4 K/uL (2.0-10.0); MONOCYTES % (AUTO) 9.5 % (0.0-11.0); NEUTROPHILS # (AUTO) 1.5 K/uL (1.8-8.9); NEUTROPHILS % (AUTO) 35.8 % (38.5-71.5); PLATELET COUNT (AUTO) 125 K/uL (152-348); RED BLOOD CELL COUNT(AUTO) 3.22 MIL/uL (4.06-5.63); WHITE BLOOD COUNT (AUTO) 4.1 K/uL (3.6-10.2)
[2019-04-01 08:53] LABS: ALANINE AMINOTRANSFERASE 20 U/L (16-63); ALKALINE PHOSPHATASE 56 U/L (50-136); ASPARTATE AMINOTRANSFERASE 18 U/L (15-37); BILIRUBIN,TOTAL 0.3 mg/dL (0.2-1.0); CARBON DIOXIDE 30 mmol/L (21-32); CHLORIDE 107 mmol/L (98-107); GLUCOSE 82 mg/dL (74-106); MAGNESIUM 1.6 mg/dL (1.8-2.4); PHOSPHOROUS 3.5 mg/dL (2.5-4.9); POTASSIUM 4.2 mmol/L (3.5-5.1); TOTAL PROTEIN, SERUM 6.4 g/dL (6.4-8.2); UREA NITROGEN, BLOOD 22 mg/dL (7-18)
--- NOTE | 2019-04-01 11:58 | NUR ---
Report received from Asma/ RN received patient, awake, alert x2-3. Not in any form of distress. Resting in chair, on room air, with baseline LOC. Calm and pleasant upon approach.
[2019-04-01] MEDS ORDERED: MAGNESIUM OXIDE 400 MG TABLET PO ONE (14:30)
[2019-04-01 16:00] VITALS: BP 99/63
[2019-04-01] MEDS: MIRALAX 17 GM POWD.PACK PO PRN (18:33)
--- NOTE | 2019-04-01 19:20 | NUR ---
Received patient sitting in the chair inside his room. AOx3. In no acute distress. Denies any pain or SOB. Calm and pleasant. Needs assessed and attended to. Safety measure initiated and call suh within reach.
[2019-04-01 19:53] VITALS: BP 123/63
[2019-04-01] MEDS: SENNOSIDES/DOCUSATE SODIUM TABLET PO SCH (20:19)
[2019-04-01] MEDS: OLANZAPINE 5 MG TABLET PO SCH (20:19)
--- NOTE | 2019-04-02 06:30 | NUR ---
Slept well last night. AOx3. In no acute distress. No complain of pain or SOB. Safety measure maintained and call suh within reach.
[2019-04-02 06:53] VITALS: BP 110/37
--- NOTE | 2019-04-02 07:45 | NUR ---
Patient sitting in chair, no sob,resp even nonlabored, no acute distress noted
[2019-04-02] MEDS: MULTIVITAMINS,THERAPEUTIC TABLET PO SCH (08:06)
[2019-04-02] MEDS: CHOLECALCIFEROL 1,000 UNIT TABLET PO SCH (08:06)
[2019-04-02] MEDS: OXYBUTYNIN CHLORIDE 5 MG TABLET PO SCH ×2 (08:06→16:44)
[2019-04-02] MEDS: DIVALPROEX 500 MG TABLET.DR PO SCH ×2 (08:06→16:44)
[2019-04-02] MEDS: METOPROLOL TARTRATE 25 MG TABLET PO SCH ×2 (08:09→20:17)
[2019-04-02] MEDS: MIRALAX 17 GM POWD.PACK PO PRN (08:20)
[2019-04-02 09:06] VITALS: BP 129/48
[2019-04-02 18:43] VITALS: BP 111/52
--- NOTE | 2019-04-02 19:40 | NUR ---
no acute distess noted, no sob, resp even nonlabored,skin warm and dry to touch,report given to overnight stocker
[2019-04-02] MEDS: CLONAZEPAM 1 MG TABLET PO PRN (20:16)
[2019-04-02] MEDS: OLANZAPINE 5 MG TABLET PO SCH (20:17)
[2019-04-02] MEDS: SENNOSIDES/DOCUSATE SODIUM TABLET PO SCH (20:17)
[2019-04-02 21:58] VITALS: BP 159/78
[2019-04-03 04:30] VITALS: BP 100/39
[2019-04-03 08:00] VITALS: BP 119/59
[2019-04-03] MEDS: DIVALPROEX 500 MG TABLET.DR PO SCH ×2 (08:28→17:24)
[2019-04-03] MEDS: MULTIVITAMINS,THERAPEUTIC TABLET PO SCH (08:29)
[2019-04-03] MEDS: OXYBUTYNIN CHLORIDE 5 MG TABLET PO SCH ×2 (08:29→17:25)
[2019-04-03] MEDS: CHOLECALCIFEROL 1,000 UNIT TABLET PO SCH (08:29)
[2019-04-03] MEDS: METOPROLOL TARTRATE 25 MG TABLET PO SCH ×2 (08:29→21:00)
--- NOTE | 2019-04-03 11:31 | NUR ---
Patient continue therapy for ADL and muscle weakness. tolerated well. Continue behavioral monitoring. observe patient talking to himself, not agitated and not combative. not in distress. will continue monitor
[2019-04-03] MEDS: MIRALAX 17 GM POWD.PACK PO PRN (15:07)
[2019-04-03 16:13] VITALS: BP 114/56
[2019-04-03 21:07] VITALS: BP 117/48
[2019-04-03] MEDS: SENNOSIDES/DOCUSATE SODIUM TABLET PO SCH (21:09)
[2019-04-03] MEDS: OLANZAPINE 5 MG TABLET PO SCH (21:10)
[2019-04-03] MEDS: CLONAZEPAM 1 MG TABLET PO PRN (21:12)
--- NOTE | 2019-04-03 22:06 | NUR ---
aaox1-2 confused and disoriented. ambulates with cane at beginning of shift. tolertaed po meds well. VSS. No acute distress noted. Wears prosthesis during the day. Needs attended. Kept comfortable. No signs of agitation or restlessness noted. Continent of bowel and bladder. will monitor patient. Klonopin given @ hs. BP 117/48 HR 87 metoprolol held. No complaints presented during shift.
[2019-04-04 04:30] VITALS: BP 98/62
[2019-04-04 08:00] VITALS: BP 99/48
[2019-04-04] MEDS: METOPROLOL TARTRATE 25 MG TABLET PO SCH ×2 (09:00→21:34)
[2019-04-04] MEDS: CHOLECALCIFEROL 1,000 UNIT TABLET PO SCH (09:37)
[2019-04-04] MEDS: OXYBUTYNIN CHLORIDE 5 MG TABLET PO SCH ×2 (09:37→16:30)
[2019-04-04] MEDS: MULTIVITAMINS,THERAPEUTIC TABLET PO SCH (09:37)
[2019-04-04] MEDS: DIVALPROEX 500 MG TABLET.DR PO SCH ×2 (09:37→16:30)
--- NOTE | 2019-04-04 12:55 | NUR ---
Received patient sitting in the chair inside room. singing and talking by himself. no signs to harm other. not combative and agitated. Continue following by psych MD. will continue monitor
--- NOTE | 2019-04-04 12:56 | NUR ---
Continue therapy for muscle weakness. tolerated well. will continue monitor
[2019-04-04 16:00] VITALS: BP 119/52
[2019-04-04] MEDS: MIRALAX 17 GM POWD.PACK PO PRN (18:01)
--- NOTE | 2019-04-04 18:13 | NUR ---
Patient no BM since April 01, miralax powder and prune juice given around 5pm. Continue on fall precaution maintained. will continue monitor
--- NOTE | 2019-04-04 18:32 | NUR ---
As per ACCOUNT OFFICER, while doing rounds, Patient found in the shower room. wet himself, sitting in the shower chair, denies pain/discomfort, denies fall episode, wet hair noted, verbalize that he did it by himself. red scab on right upper leg noted. will continue monitor
[2019-04-04] MEDS: CLONAZEPAM 1 MG TABLET PO PRN (18:40)
--- NOTE | 2019-04-04 18:57 | NUR ---
Klonopin 1mg given, red scab, redness in right leg noted. For wound consult for scab. will continue monitor
[2019-04-04] MEDS: OLANZAPINE 5 MG TABLET PO SCH (21:33)
[2019-04-04] MEDS: SENNOSIDES/DOCUSATE SODIUM TABLET PO SCH (21:33)
[2019-04-04 22:23] VITALS: BP 117/57
--- NOTE | 2019-04-04 22:40 | NUR ---
Received pt resting in bed. AAO x1-2. No acute distress noted. No c/o pain or discomfort. Due meds given as ordered. Safety measures maintained. Bed alarm on. Call light and personal belongings within reach. Will continue to monitor.
[2019-04-05 04:50] VITALS: BP 98/36
[2019-04-05 06:41] LABS: BASOPHILS % (AUTO) 0.3 % (0.0-2.0); EOSINOPHILS # (AUTO) 0.1 K/uL (0.0-0.7); EOSINOPHILS % (AUTO) 1.9 % (0.0-7.0); HEMATOCRIT 33.7 % (36.7-47.1); HEMOGLOBIN 11.4 g/dL (12.5-16.3); LYMPHOCYTES % (AUTO) 52.7 % (20.5-51.5); MEAN CORPUSCULAR HGB CONC 34 g/dL (32.5-36.3); MEAN CORPUSCULAR VOLUME 103.8 fL (73.0-96.2); MONOCYTES # (AUTO) 0.5 K/uL (2.0-10.0); MONOCYTES % (AUTO) 12.5 % (0.0-11.0); NEUTROPHILS # (AUTO) 1.2 K/uL (1.8-8.9); NEUTROPHILS % (AUTO) 32.6 % (38.5-71.5); PLATELET COUNT (AUTO) 88 K/uL (152-348); RED BLOOD CELL COUNT(AUTO) 3.25 MIL/uL (4.06-5.63); WHITE BLOOD COUNT (AUTO) 3.8 K/uL (3.6-10.2)
[2019-04-05 06:59] LABS: CARBON DIOXIDE 27 mmol/L (21-32); CHLORIDE 108 mmol/L (98-107); GLUCOSE 80 mg/dL (74-106); POTASSIUM 4.5 mmol/L (3.5-5.1); UREA NITROGEN, BLOOD 27 mg/dL (7-18)
[2019-04-05 08:00] VITALS: BP 106/50
--- NOTE | 2019-04-05 08:26 | NUR ---
PATIENT NOTED RESTING IN BED WITH EYES CLOSED, NO FACIAL CUES OF PAIN AT THIS TIME, NO SIGNS OF DISTRESS NOTED, CALL LIGHT IN REACH, BED LOCKED AND IN LOWEST, ALL NEEDS MET AT THIS TIME
[2019-04-05 09:00] VITALS: BP 106/50
[2019-04-05] MEDS: METOPROLOL TARTRATE 25 MG TABLET PO SCH (09:00)
[2019-04-05] MEDS: CHOLECALCIFEROL 1,000 UNIT TABLET PO SCH (09:24)
[2019-04-05] MEDS: OXYBUTYNIN CHLORIDE 5 MG TABLET PO SCH (09:24)
[2019-04-05] MEDS: MULTIVITAMINS,THERAPEUTIC TABLET PO SCH (09:24)
[2019-04-05] MEDS: DIVALPROEX 500 MG TABLET.DR PO SCH (09:24)
--- NOTE | 2019-04-05 12:55 | NUR ---
WOUND CARE CONSULT: PT PRESENTS WITH RT ANTERIOR THIGH BLISTERS FROM PROSTHESIS. PER NURSING STAFF, PT PULLED UP HIS LINER ALMOST TO HIS GROIN AND CAUSED SOME BLISTERING. RECOMMENDATIONS MADE FOR WOUND CARE AND SKIN PROTECTION (XEROFORM AND MEPILEX). DISCUSSED WITH NURSING STAFF. PT IS CONTINENT AT THIS TIME AND USING A WHEELCHAIR. WILL SEE PRN. ARNETT IN AGREEMENT WITH PLAN OF CARE. Addendum: 04/05/19 at 1300 by ANA OVERTON RN Amended: Links added.
--- NOTE | 2019-04-05 16:51 | NUR ---
Patient discharged to MHU unit at [facility] at this time via wheelchair, conservatorship and detaining paperwork signed and placed in chart, report given to ARASH RN, no complaints of pain, no signs of distress noted, MD orellana and MD Medina notified of patients transfer, all belongings accounted fof, patient refused to sign any paper work
== END 2019-04-05 17:00 | DRG 57 ==
PROVIDERS: ADMIT Physical Medicine & Rehabilitation Pain Medicine; ATTEND Physical Medicine & Rehabilitation Pain Medicine
DX: G21.19 Other drug induced secondary parkinsonism (principal); Z68.1 Body mass index [BMI] 19.9 or less, adult; D68.59 Other primary thrombophilia; F31.64 Bipolar disorder, current episode mixed, severe, with psychotic features; T50.905D Adverse effect of unspecified drugs, medicaments and biological substances, subsequent encounter; D69.6 Thrombocytopenia, unspecified; N18.3 Chronic kidney disease, stage 3 (moderate); R62.7 Adult failure to thrive; Z89.511 Acquired absence of right leg below knee; R53.1 Weakness; R53.81 Other malaise; R53.83 Other fatigue; R63.0 Anorexia; D53.9 Nutritional anemia, unspecified; E78.5 Hyperlipidemia, unspecified; E83.42 Hypomagnesemia; I12.9 Hypertensive chronic kidney disease with stage 1 through stage 4 chronic kidney disease, or unspecified chronic kidney disease; I70.0 Atherosclerosis of aorta; M19.90 Unspecified osteoarthritis, unspecified site; R45.1 Restlessness and agitation; Z88.8 Allergy status to other drugs, medicaments and biological substances; D75.89 Other specified diseases of blood and blood-forming organs
CPT/HCPCS: 36415; 70030-TC; 80164; 83735; 84100; 85025; 92507; 92523; 92526; 92610; 97110; 97112; 97116; 97165; 97530; 97535

== ENCOUNTER 2019-04-05 17:05 | Inpatient (IN) | payer MEDICARE, OTHER ==
[~2019-04-05] VITALS: Ht 180.3 cm; Wt 65.3 kg
[2019-04-05 17:00] VITALS: BP 111/58
[~2019-04-05 17:05] MED LIST changes: -DEXT15DR6 OP; +HYDR-4354 PO
[2019-04-05] MEDS ORDERED: MAG HYDROX/AL HYDROX/SIMETH 30 ML LIQUID UDC PO PRN (17:30)
[2019-04-05] MEDS ORDERED: ACETAMINOPHEN 325 MG TABLET PO PRN (17:30)
[2019-04-05] MEDS ORDERED: MAGNESIUM HYDROXIDE 30 ML LIQUID UDC PO PRN (17:30)
[2019-04-05] MEDS ORDERED: LORAZEPAM 0.5 MG TABLET PO PRN (17:30)
[2019-04-05 20:00] VITALS: BP 124/52
[2019-04-05] MEDS: ZOLPIDEM 5 MG TABLET PO PRN (23:10)
[2019-04-06] MEDS: ZOLPIDEM 5 MG TABLET PO PRN ×3 (03:47→22:00)
[2019-04-06] MEDS: LORAZEPAM 1 MG TABLET PO PRN (06:42)
[2019-04-06 07:30] VITALS: BP 107/60
[2019-04-06] MEDS: NICOTINE 14 MG/24HR PATCH TD SCH (09:29)
[2019-04-06] MEDS ORDERED: HYDROCODONE/APAP 10-325 MG TABLET PO PRN (09:30)
[2019-04-06] MEDS ORDERED: ACETAMINOPHEN 325 MG TABLET PO PRN ×2 (09:30)
[2019-04-06] MEDS ORDERED: POLYETHYLENE GLYCOL 3350 238 GM POWDER PO PRN (09:30)
[2019-04-06] MEDS: METOPROLOL TARTRATE 25 MG TABLET PO SCH ×2 (09:35→21:00)
[2019-04-06 16:02] VITALS: BP 124/61
[2019-04-06] MEDS: LITHIUM CARBONATE 300 MG CAPSULE PO SCH (16:58)
[2019-04-06] MEDS: OMEGA-3 FATTY ACIDS/FISH OIL CAPSULE PO SCH (16:58)
[2019-04-06] MEDS: DIVALPROEX ER 500 MG TAB.SR.24H PO SCH (16:59)
[2019-04-06] MEDS: OXYBUTYNIN CHLORIDE 5 MG TABLET PO SCH (17:00)
[2019-04-06] MEDS ORDERED: Medication Not On Formulary EA (Omega-3/Dha/Epa/Fish Oil (Fish Oil 1,000 mg Softgel) 1,0 PO SCH (17:00)
[2019-04-06] MEDS: VITAMINS A AND D OINT TP SCH (17:09)
[2019-04-06 20:00] VITALS: BP 120/58
[2019-04-06] MEDS: OLANZAPINE 5 MG TABLET PO SCH (20:11)
[2019-04-06] MEDS: ATORVASTATIN 20 MG TABLET PO SCH (20:12)
[2019-04-07 07:30] VITALS: BP 117/68
[2019-04-07] MEDS: MULTIVITAMINS,THERAPEUTIC TABLET PO SCH (08:04)
[2019-04-07] MEDS: OXYBUTYNIN CHLORIDE 5 MG TABLET PO SCH ×2 (08:04→16:39)
[2019-04-07] MEDS: OMEGA-3 FATTY ACIDS/FISH OIL CAPSULE PO SCH ×2 (08:04→16:39)
[2019-04-07] MEDS: NICOTINE 14 MG/24HR PATCH TD SCH (08:04)
[2019-04-07] MEDS: METOPROLOL TARTRATE 25 MG TABLET PO SCH ×2 (08:05→21:09)
[2019-04-07] MEDS: CHOLECALCIFEROL 1,000 UNIT TABLET PO SCH (08:05)
[2019-04-07] MEDS: DIVALPROEX ER 500 MG TAB.SR.24H PO SCH ×2 (08:06→16:39)
[2019-04-07] MEDS: LITHIUM CARBONATE 300 MG CAPSULE PO SCH ×2 (08:06→16:39)
[2019-04-07] MEDS: VITAMINS A AND D OINT TP SCH ×2 (08:06→16:39)
[2019-04-07] MEDS: OLANZAPINE 5 MG TABLET PO SCH ×2 (08:06→21:08)
[2019-04-07] MEDS ORDERED: Medication Not On Formulary EA (Multivitamins (Multivitamin) 1 EACH) PO SCH (09:00)
[2019-04-07 16:00] VITALS: BP 115/56
[2019-04-07] MEDS ORDERED: DIVALPROEX ER 250 MG TAB.SR.24H PO SCH (17:00)
[2019-04-07 20:19] VITALS: BP 131/61
[2019-04-07] MEDS: ATORVASTATIN 20 MG TABLET PO SCH (21:07)
[2019-04-07] MEDS: ZOLPIDEM 5 MG TABLET PO PRN (22:42)
[2019-04-08 06:49] LABS: BASOPHILS % (AUTO) 0.4 % (0.0-2.0); EOSINOPHILS # (AUTO) 0.1 K/uL (0.0-0.7); EOSINOPHILS % (AUTO) 2.2 % (0.0-7.0); HEMATOCRIT 35.5 % (36.7-47.1); HEMOGLOBIN 11.9 g/dL (12.5-16.3); LYMPHOCYTES # (AUTO) 2.2 K/uL (20.0-40.0); LYMPHOCYTES % (AUTO) 45.1 % (20.5-51.5); MEAN CORPUSCULAR HEMOGLOBIN 34.8 uug (23.8-33.4); MEAN CORPUSCULAR HGB CONC 33 g/dL (32.5-36.3); MEAN CORPUSCULAR VOLUME 104.3 fL (73.0-96.2); MONOCYTES # (AUTO) 0.4 K/uL (2.0-10.0); MONOCYTES % (AUTO) 8.1 % (0.0-11.0); NEUTROPHILS # (AUTO) 2.2 K/uL (1.8-8.9); NEUTROPHILS % (AUTO) 44.2 % (38.5-71.5); PLATELET COUNT (AUTO) 97 K/uL (152-348); WHITE BLOOD COUNT (AUTO) 4.9 K/uL (3.6-10.2)
[2019-04-08 06:55] LABS: CARBON DIOXIDE 31 mmol/L (21-32); CHLORIDE 105 mmol/L (98-107); GLUCOSE 82 mg/dL (74-106); POTASSIUM 4.2 mmol/L (3.5-5.1); UREA NITROGEN, BLOOD 29 mg/dL (7-18)
[2019-04-08 07:30] VITALS: BP 125/57
[2019-04-08] MEDS: LITHIUM CARBONATE 300 MG CAPSULE PO SCH ×2 (08:17→16:18)
[2019-04-08] MEDS: MULTIVITAMINS,THERAPEUTIC TABLET PO SCH (08:17)
[2019-04-08] MEDS: OXYBUTYNIN CHLORIDE 5 MG TABLET PO SCH ×2 (08:17→16:22)
[2019-04-08] MEDS: OMEGA-3 FATTY ACIDS/FISH OIL CAPSULE PO SCH ×2 (08:18→16:18)
[2019-04-08] MEDS: CHOLECALCIFEROL 1,000 UNIT TABLET PO SCH (08:18)
[2019-04-08] MEDS: DIVALPROEX ER 250 MG TAB.SR.24H PO SCH ×2 (08:18→16:18)
[2019-04-08] MEDS: METOPROLOL TARTRATE 25 MG TABLET PO SCH ×2 (08:21→20:10)
[2019-04-08] MEDS: NICOTINE 14 MG/24HR PATCH TD SCH (08:21)
[2019-04-08] MEDS: OLANZAPINE 5 MG TABLET PO SCH ×2 (08:21→20:10)
[2019-04-08] MEDS: VITAMINS A AND D OINT TP SCH ×2 (08:22→16:22)
[2019-04-08] MEDS: MIRALAX 17 GM POWD.PACK PO PRN (14:43)
[2019-04-08 15:59] VITALS: BP 104/48
[2019-04-08] MEDS: ATORVASTATIN 20 MG TABLET PO SCH (20:10)
[2019-04-08] MEDS: SENNOSIDES/DOCUSATE SODIUM TABLET PO PRN (20:19)
[2019-04-08 20:50] VITALS: BP 116/50
[2019-04-08] MEDS: ZOLPIDEM 5 MG TABLET PO PRN (23:23)
[2019-04-09 07:30] VITALS: BP 119/46
[2019-04-09] MEDS: NICOTINE 14 MG/24HR PATCH TD SCH (08:17)
[2019-04-09] MEDS: OLANZAPINE 5 MG TABLET PO SCH ×2 (08:17→20:07)
[2019-04-09] MEDS: MULTIVITAMINS,THERAPEUTIC TABLET PO SCH (08:17)
[2019-04-09] MEDS: VITAMINS A AND D OINT TP SCH ×2 (08:17→16:17)
[2019-04-09] MEDS: DIVALPROEX ER 250 MG TAB.SR.24H PO SCH ×2 (08:18→16:17)
[2019-04-09] MEDS: OMEGA-3 FATTY ACIDS/FISH OIL CAPSULE PO SCH ×2 (08:18→16:17)
[2019-04-09] MEDS: OXYBUTYNIN CHLORIDE 5 MG TABLET PO SCH ×2 (08:18→16:17)
[2019-04-09] MEDS: METOPROLOL TARTRATE 25 MG TABLET PO SCH ×2 (08:18→20:07)
[2019-04-09] MEDS: CHOLECALCIFEROL 1,000 UNIT TABLET PO SCH (08:18)
[2019-04-09] MEDS: LITHIUM CARBONATE 300 MG CAPSULE PO SCH ×3 (08:18→16:17)
[2019-04-09] MEDS: LORAZEPAM 1 MG TABLET PO PRN (14:29)
[2019-04-09 16:00] VITALS: BP 104/43
[2019-04-09] MEDS: ATORVASTATIN 20 MG TABLET PO SCH (20:06)
[2019-04-09 20:34] VITALS: BP 109/45
[2019-04-09] MEDS: ZOLPIDEM 5 MG TABLET PO PRN (21:41)
[2019-04-10] MEDS: LORAZEPAM 1 MG TABLET PO PRN (01:14)
[2019-04-10 07:30] VITALS: BP 92/47
[2019-04-10] MEDS: OXYBUTYNIN CHLORIDE 5 MG TABLET PO SCH ×2 (08:47→17:06)
[2019-04-10] MEDS: DIVALPROEX ER 250 MG TAB.SR.24H PO SCH ×2 (08:47→17:06)
[2019-04-10] MEDS: OMEGA-3 FATTY ACIDS/FISH OIL CAPSULE PO SCH ×2 (08:47→17:06)
[2019-04-10] MEDS: CHOLECALCIFEROL 1,000 UNIT TABLET PO SCH (08:47)
[2019-04-10] MEDS: OLANZAPINE 5 MG TABLET PO SCH ×2 (08:47→20:11)
[2019-04-10] MEDS: NICOTINE 14 MG/24HR PATCH TD SCH (08:47)
[2019-04-10] MEDS: METOPROLOL TARTRATE 25 MG TABLET PO SCH ×2 (08:47→20:14)
[2019-04-10] MEDS: LITHIUM CARBONATE 300 MG CAPSULE PO SCH ×3 (08:47→17:06)
[2019-04-10] MEDS: MULTIVITAMINS,THERAPEUTIC TABLET PO SCH (08:47)
[2019-04-10] MEDS: VITAMINS A AND D OINT TP SCH ×2 (09:42→17:07)
[2019-04-10] MEDS: SENNOSIDES/DOCUSATE SODIUM TABLET PO PRN (09:43)
[2019-04-10 15:52] VITALS: BP 104/50
[2019-04-10 20:00] VITALS: BP 115/52
[2019-04-10] MEDS: ATORVASTATIN 20 MG TABLET PO SCH (20:11)
[2019-04-11 07:30] VITALS: BP 120/53
[2019-04-11] MEDS: OLANZAPINE 5 MG TABLET PO SCH ×2 (08:47→20:41)
[2019-04-11] MEDS: LITHIUM CARBONATE 300 MG CAPSULE PO SCH ×3 (08:47→17:12)
[2019-04-11] MEDS: DIVALPROEX ER 250 MG TAB.SR.24H PO SCH ×2 (08:47→17:12)
[2019-04-11] MEDS: OMEGA-3 FATTY ACIDS/FISH OIL CAPSULE PO SCH ×2 (08:47→17:12)
[2019-04-11] MEDS: MULTIVITAMINS,THERAPEUTIC TABLET PO SCH (08:47)
[2019-04-11] MEDS: CHOLECALCIFEROL 1,000 UNIT TABLET PO SCH (08:47)
[2019-04-11] MEDS: NICOTINE 14 MG/24HR PATCH TD SCH (08:48)
[2019-04-11] MEDS: METOPROLOL TARTRATE 25 MG TABLET PO SCH ×2 (08:48→20:40)
[2019-04-11] MEDS: OXYBUTYNIN CHLORIDE 5 MG TABLET PO SCH ×2 (08:48→17:12)
[2019-04-11] MEDS: VITAMINS A AND D OINT TP SCH ×2 (08:49→17:11)
[2019-04-11 15:06] VITALS: BP 105/46
[2019-04-11 19:53] VITALS: BP 101/47
[2019-04-11] MEDS: ATORVASTATIN 20 MG TABLET PO SCH (20:42)
[2019-04-12 07:57] VITALS: BP 109/57
[2019-04-12] MEDS: NICOTINE 14 MG/24HR PATCH TD SCH (08:25)
[2019-04-12] MEDS: OMEGA-3 FATTY ACIDS/FISH OIL CAPSULE PO SCH ×2 (08:26→16:08)
[2019-04-12] MEDS: LITHIUM CARBONATE 300 MG CAPSULE PO SCH ×3 (08:26→16:08)
[2019-04-12] MEDS: DIVALPROEX ER 250 MG TAB.SR.24H PO SCH ×2 (08:26→16:08)
[2019-04-12] MEDS: CHOLECALCIFEROL 1,000 UNIT TABLET PO SCH (08:26)
[2019-04-12] MEDS: OXYBUTYNIN CHLORIDE 5 MG TABLET PO SCH ×2 (08:27→16:22)
[2019-04-12] MEDS: VITAMINS A AND D OINT TP SCH ×2 (08:27→16:24)
[2019-04-12] MEDS: MULTIVITAMINS,THERAPEUTIC TABLET PO SCH (08:27)
[2019-04-12] MEDS: OLANZAPINE 5 MG TABLET PO SCH ×2 (08:27→21:08)
[2019-04-12] MEDS: METOPROLOL TARTRATE 25 MG TABLET PO SCH ×2 (10:06→21:09)
[2019-04-12] MEDS: MIRALAX 17 GM POWD.PACK PO PRN (13:20)
[2019-04-12 15:07] VITALS: BP 102/49
[2019-04-12] MEDS ORDERED: BISACODYL 10 MG SUPP.RECT RC PRN (18:00)
[2019-04-12 20:15] VITALS: BP 111/58
[2019-04-12] MEDS: ATORVASTATIN 20 MG TABLET PO SCH (21:09)
[2019-04-13 07:30] VITALS: BP 114/49
[2019-04-13] MEDS: OMEGA-3 FATTY ACIDS/FISH OIL CAPSULE PO SCH ×2 (08:50→16:52)
[2019-04-13] MEDS: MULTIVITAMINS,THERAPEUTIC TABLET PO SCH (08:50)
[2019-04-13] MEDS: LITHIUM CARBONATE 300 MG CAPSULE PO SCH ×3 (08:50→16:52)
[2019-04-13] MEDS: OXYBUTYNIN CHLORIDE 5 MG TABLET PO SCH ×2 (08:50→16:52)
[2019-04-13] MEDS: DIVALPROEX ER 250 MG TAB.SR.24H PO SCH ×2 (08:50→16:52)
[2019-04-13] MEDS: OLANZAPINE 5 MG TABLET PO SCH ×2 (08:50→20:49)
[2019-04-13] MEDS: METOPROLOL TARTRATE 25 MG TABLET PO SCH ×2 (08:52→20:49)
[2019-04-13] MEDS: NICOTINE 14 MG/24HR PATCH TD SCH (08:52)
[2019-04-13] MEDS: CHOLECALCIFEROL 1,000 UNIT TABLET PO SCH (08:52)
[2019-04-13] MEDS: VITAMINS A AND D OINT TP SCH ×2 (08:52→16:53)
[2019-04-13 16:00] VITALS: BP 125/48
[2019-04-13 20:16] VITALS: BP 126/63
[2019-04-13] MEDS: ATORVASTATIN 20 MG TABLET PO SCH (20:49)
[2019-04-14 07:30] VITALS: BP 110/50
[2019-04-14 07:54] LABS: CARBON DIOXIDE 29 mmol/L (21-32); CHLORIDE 107 mmol/L (98-107); CREATININE 1.1 mg/dL (0.6-1.3); GLUCOSE 88 mg/dL (74-106); POTASSIUM 4.4 mmol/L (3.5-5.1); UREA NITROGEN, BLOOD 31 mg/dL (7-18)
[2019-04-14] MEDS: OMEGA-3 FATTY ACIDS/FISH OIL CAPSULE PO SCH ×2 (08:52→17:16)
[2019-04-14] MEDS: DIVALPROEX ER 250 MG TAB.SR.24H PO SCH ×2 (08:52→17:16)
[2019-04-14] MEDS: METOPROLOL TARTRATE 25 MG TABLET PO SCH ×2 (08:52→20:20)
[2019-04-14] MEDS: CHOLECALCIFEROL 1,000 UNIT TABLET PO SCH (08:52)
[2019-04-14] MEDS: MULTIVITAMINS,THERAPEUTIC TABLET PO SCH (08:52)
[2019-04-14] MEDS: OLANZAPINE 5 MG TABLET PO SCH ×2 (08:52→20:16)
[2019-04-14] MEDS: VITAMINS A AND D OINT TP SCH ×2 (08:53→17:16)
[2019-04-14] MEDS: NICOTINE 14 MG/24HR PATCH TD SCH (08:53)
[2019-04-14] MEDS: OXYBUTYNIN CHLORIDE 5 MG TABLET PO SCH ×2 (08:53→17:16)
[2019-04-14] MEDS ORDERED: LITHIUM CARBONATE 300 MG CAPSULE PO SCH (09:00)
[2019-04-14 16:00] VITALS: BP 95/48
[2019-04-14] MEDS: ATORVASTATIN 20 MG TABLET PO SCH (20:16)
[2019-04-14 20:27] VITALS: BP_SYST 106; BP_SYST 127; BP_DIAS 55; BP_DIAS 81
[2019-04-15] MEDS: LORAZEPAM 1 MG TABLET PO PRN (04:09)
[2019-04-15 07:30] VITALS: BP 116/50
[2019-04-15] MEDS: DIVALPROEX ER 250 MG TAB.SR.24H PO SCH ×2 (08:42→16:55)
[2019-04-15] MEDS: MULTIVITAMINS,THERAPEUTIC TABLET PO SCH (08:42)
[2019-04-15] MEDS: OLANZAPINE 5 MG TABLET PO SCH ×2 (08:42→20:19)
[2019-04-15] MEDS: CHOLECALCIFEROL 1,000 UNIT TABLET PO SCH (08:42)
[2019-04-15] MEDS: OMEGA-3 FATTY ACIDS/FISH OIL CAPSULE PO SCH ×2 (08:42→16:56)
[2019-04-15] MEDS: LITHIUM CARBONATE 300 MG CAPSULE PO SCH ×2 (08:42→16:56)
[2019-04-15] MEDS: METOPROLOL TARTRATE 25 MG TABLET PO SCH ×2 (08:43→20:20)
[2019-04-15] MEDS: NICOTINE 14 MG/24HR PATCH TD SCH (08:44)
[2019-04-15] MEDS: VITAMINS A AND D OINT TP SCH ×2 (08:44→16:56)
[2019-04-15] MEDS: OXYBUTYNIN CHLORIDE 5 MG TABLET PO SCH ×2 (08:45→16:56)
[2019-04-15 15:08] VITALS: BP 90/48
[2019-04-15] MEDS: ATORVASTATIN 20 MG TABLET PO SCH (20:20)
[2019-04-15 21:41] VITALS: BP 112/42
[2019-04-16] MEDS: LORAZEPAM 1 MG TABLET PO PRN (02:02)
[2019-04-16 07:30] VITALS: BP 108/49
[2019-04-16] MEDS: NICOTINE 14 MG/24HR PATCH TD SCH (08:18)
[2019-04-16] MEDS: OMEGA-3 FATTY ACIDS/FISH OIL CAPSULE PO SCH ×2 (08:18→18:18)
[2019-04-16] MEDS: OLANZAPINE 5 MG TABLET PO SCH ×2 (08:18→20:11)
[2019-04-16] MEDS: LITHIUM CARBONATE 300 MG CAPSULE PO SCH ×2 (08:18→18:18)
[2019-04-16] MEDS: OXYBUTYNIN CHLORIDE 5 MG TABLET PO SCH ×2 (08:18→18:18)
[2019-04-16] MEDS: VITAMINS A AND D OINT TP SCH ×2 (08:18→18:25)
[2019-04-16] MEDS: CHOLECALCIFEROL 1,000 UNIT TABLET PO SCH (08:18)
[2019-04-16] MEDS: DIVALPROEX ER 250 MG TAB.SR.24H PO SCH ×2 (08:18→18:18)
[2019-04-16] MEDS: METOPROLOL TARTRATE 25 MG TABLET PO SCH ×2 (08:23→20:11)
[2019-04-16] MEDS: MULTIVITAMINS,THERAPEUTIC TABLET PO SCH (08:33)
[2019-04-16 16:00] VITALS: BP 124/46
[2019-04-16 20:08] VITALS: BP 115/49
[2019-04-16] MEDS: ATORVASTATIN 20 MG TABLET PO SCH (20:11)
[2019-04-17 07:30] VITALS: BP 129/97
[2019-04-17] MEDS: LITHIUM CARBONATE 300 MG CAPSULE PO SCH ×2 (08:42→17:22)
[2019-04-17] MEDS: MULTIVITAMINS,THERAPEUTIC TABLET PO SCH (08:42)
[2019-04-17] MEDS: OLANZAPINE 5 MG TABLET PO SCH ×2 (08:42→20:01)
[2019-04-17] MEDS: CHOLECALCIFEROL 1,000 UNIT TABLET PO SCH (08:42)
[2019-04-17] MEDS: DIVALPROEX ER 250 MG TAB.SR.24H PO SCH ×2 (08:42→17:22)
[2019-04-17] MEDS: OMEGA-3 FATTY ACIDS/FISH OIL CAPSULE PO SCH ×2 (08:42→17:22)
[2019-04-17] MEDS: OXYBUTYNIN CHLORIDE 5 MG TABLET PO SCH ×2 (08:43→17:24)
[2019-04-17] MEDS: NICOTINE 14 MG/24HR PATCH TD SCH (08:43)
[2019-04-17] MEDS: VITAMINS A AND D OINT TP SCH ×2 (09:00→17:22)
[2019-04-17] MEDS: METOPROLOL TARTRATE 25 MG TABLET PO SCH ×2 (09:48→20:07)
[2019-04-17 15:41] VITALS: BP 121/54
[2019-04-17 20:00] VITALS: BP 115/50
[2019-04-17] MEDS: ATORVASTATIN 20 MG TABLET PO SCH (20:01)
[2019-04-18 07:30] VITALS: BP 111/56
[2019-04-18] MEDS: OMEGA-3 FATTY ACIDS/FISH OIL CAPSULE PO SCH (08:24)
[2019-04-18] MEDS: NICOTINE 14 MG/24HR PATCH TD SCH (08:24)
[2019-04-18] MEDS: LITHIUM CARBONATE 300 MG CAPSULE PO SCH (08:24)
[2019-04-18] MEDS: CHOLECALCIFEROL 1,000 UNIT TABLET PO SCH (08:24)
[2019-04-18] MEDS: DIVALPROEX ER 250 MG TAB.SR.24H PO SCH (08:25)
[2019-04-18] MEDS: OLANZAPINE 5 MG TABLET PO SCH (08:25)
[2019-04-18] MEDS: MULTIVITAMINS,THERAPEUTIC TABLET PO SCH (08:25)
[2019-04-18 08:26] VITALS: BP 111/56
[2019-04-18] MEDS: VITAMINS A AND D OINT TP SCH (08:26)
[2019-04-18] MEDS: METOPROLOL TARTRATE 25 MG TABLET PO SCH (08:26)
[2019-04-18] MEDS: OXYBUTYNIN CHLORIDE 5 MG TABLET PO SCH (08:27)
== END 2019-04-18 15:10 | disposition home health service (06) | DRG 885 ==
LOC: GPS 17:05
PROVIDERS: ADMIT Psychiatry & Neurology Psychiatry; ATTEND Family Medicine
DX: F25.0 Schizoaffective disorder, bipolar type (principal); N18.3 Chronic kidney disease, stage 3 (moderate); E44.0 Moderate protein-calorie malnutrition; Z68.1 Body mass index [BMI] 19.9 or less, adult; D68.59 Other primary thrombophilia; G20 Parkinson's disease; I12.9 Hypertensive chronic kidney disease with stage 1 through stage 4 chronic kidney disease, or unspecified chronic kidney disease; R79.89 Other specified abnormal findings of blood chemistry; R62.7 Adult failure to thrive; T14.90XS Injury, unspecified, sequela; Y36.90XS War operations, unspecified, sequela; Z89.511 Acquired absence of right leg below knee; E83.42 Hypomagnesemia; E78.5 Hyperlipidemia, unspecified; Z74.09 Other reduced mobility; D53.9 Nutritional anemia, unspecified
CPT/HCPCS: 36415; 70030-TC; 80164; 84443; 85025; 93005; 97110; 97116; 97530

== ENCOUNTER 2019-07-06 14:41 | Inpatient (IN) | payer MEDICARE, OTHER ==
[~2019-07-06] VITALS: Ht 182.9 cm; Wt 64.9 kg
[~2019-07-06 14:41] MED LIST changes: -CLON1TAB12 PO; -DIVA-78 PO; -LITH300T3 PO; -OLAN10TA3 PO
--- NOTE | 2019-07-06 14:52 | NUR ---
patient CASSIE, states "I am unsure why I am here but I do have schizophrenia". Patient states he takes medication for schizophrenia. Is unsure if he had any meds today. patient calm and cooperative lying in stretcher. Security at [facility]
[2019-07-06] MEDS ORDERED: VALP250S3 PO (15:07)
[2019-07-06] MEDS ORDERED: LITH8SOL PO (15:07)
[2019-07-06] MEDS ORDERED: OLAN10TA3 PO (15:07)
[2019-07-06] MEDS ORDERED: MELA3TAB PO (15:07)
[2019-07-06 15:50] LABS: BASOPHILS % (AUTO) 0.1 % (0.0-2.0); EOSINOPHILS # (AUTO) 0.1 K/uL (0.0-0.7); EOSINOPHILS % (AUTO) 1.3 % (0.0-7.0); HEMATOCRIT 33.6 % (36.7-47.1); HEMOGLOBIN 11.5 g/dL (12.5-16.3); LYMPHOCYTES # (AUTO) 1.2 K/uL (20.0-40.0); LYMPHOCYTES % (AUTO) 22.7 % (20.5-51.5); MEAN CORPUSCULAR HGB CONC 34 g/dL (32.5-36.3); MEAN CORPUSCULAR VOLUME 102.2 fL (73.0-96.2); MONOCYTES # (AUTO) 0.5 K/uL (2.0-10.0); MONOCYTES % (AUTO) 8.4 % (0.0-11.0); NEUTROPHILS # (AUTO) 3.6 K/uL (1.8-8.9); NEUTROPHILS % (AUTO) 67.5 % (38.5-71.5); PLATELET COUNT (AUTO) 87 K/uL (152-348); RED BLOOD CELL COUNT(AUTO) 3.29 MIL/uL (4.06-5.63); WHITE BLOOD COUNT (AUTO) 5.4 K/uL (3.6-10.2)
[2019-07-06 15:57] LABS: CARBON DIOXIDE 27 mmol/L (21-32); CHLORIDE 103 mmol/L (98-107); CREATININE 1.2 mg/dL (0.6-1.3); GLUCOSE 105 mg/dL (74-106); POTASSIUM 4.1 mmol/L (3.5-5.1); UREA NITROGEN, BLOOD 16 mg/dL (7-18)
[2019-07-06 16:06] LABS: ETHANOL < 3 MG/DL (0-0)
[2019-07-06 16:07] LABS: ALANINE AMINOTRANSFERASE 11 U/L (16-63); ALKALINE PHOSPHATASE 64 U/L (50-136); ASPARTATE AMINOTRANSFERASE 11 U/L (15-37); BILIRUBIN,DIRECT 0.2 mg/dL (0.0-0.2); BILIRUBIN,TOTAL 0.6 mg/dL (0.2-1.0); CREATINE KINASE, TOTAL 70 U/L (39-308); TOTAL PROTEIN, SERUM 6.7 g/dL (6.4-8.2)
[2019-07-06 16:08] LABS: ACETAMINOPHEN < 2.0 ug/mL (10-30)
[2019-07-06 16:28] LABS: THYROID STIMULATING HORMONE 2.947 mIU/mL (0.358-3.740)
[2019-07-06 16:35] LABS: LYMPHOCYTES % (MANUAL) 22 % (20-40); MONOCYTES % (MANUAL) 6 % (2-10); NEUTROPHILS % (MANUAL) 72 % (42-75)
--- NOTE | 2019-07-06 18:13 | NUR ---
report called to junaid FRAZIER @[phone]. patient going to [id number]
--- NOTE | 2019-07-06 18:44 | NUR ---
Received patient from ER with staff nurse via [place] chair around 630pm in stable condition. Alert and orientedx2 with periods of confusion but cooperative. DX: Psychosis, manic behavior, right leg amputation, parkinsons dementia. full code. allergic to phenytol, levetaracetam. Continent bowel and bladder, On room air, not in distress. will endorse to next shift.
[2019-07-06] MEDS ORDERED: MAG HYDROX/AL HYDROX/SIMETH 30 ML LIQUID UDC PO PRN (21:45)
[2019-07-06] MEDS ORDERED: TEMAZEPAM 7.5 MG CAPSULE PO PRN (21:45)
[2019-07-06] MEDS ORDERED: ACETAMINOPHEN 325 MG TABLET PO PRN (21:45)
[2019-07-06] MEDS ORDERED: MAGNESIUM HYDROXIDE 30 ML LIQUID UDC PO PRN (21:45)
--- NOTE | 2019-07-06 22:00 | NUR ---
received to care, from the emergency room, on a 72 hour hold, [facility] according to the hold, he had been manic, not eating or sleeping, obstinate and argumentative with staff, and went awol from his facility, then went to the bus stop, and took his clothes off, and defecated into a trash can. upon arrival on the unit, he was confused, but calm and cooperative. assisted with PM care, and was assisted to bed, with alarm on, for safety. as of 2199, he remains asleep. no distress noted. will continue to monitor closely.
[2019-07-06 22:42] VITALS: BP 123/61
[2019-07-07 07:17] LABS: BASOPHILS % (AUTO) 0.2 % (0.0-2.0); EOSINOPHILS # (AUTO) 0.2 K/uL (0.0-0.7); EOSINOPHILS % (AUTO) 2.6 % (0.0-7.0); LYMPHOCYTES # (AUTO) 1.3 K/uL (20.0-40.0); LYMPHOCYTES % (AUTO) 22.2 % (20.5-51.5); MEAN CORPUSCULAR HEMOGLOBIN 34.8 uug (23.8-33.4); MEAN CORPUSCULAR HGB CONC 34 g/dL (32.5-36.3); MEAN CORPUSCULAR VOLUME 102.9 fL (73.0-96.2); MONOCYTES # (AUTO) 0.5 K/uL (2.0-10.0); MONOCYTES % (AUTO) 8.5 % (0.0-11.0); NEUTROPHILS % (AUTO) 66.5 % (38.5-71.5); PLATELET COUNT (AUTO) 95 K/uL (152-348); RED BLOOD CELL COUNT(AUTO) 3.61 MIL/uL (4.06-5.63)
[2019-07-07 07:30] VITALS: BP 134/56
[2019-07-07 07:40] LABS: HEMATOCRIT 37.1 % (36.7-47.1); HEMOGLOBIN 12.6 g/dL (12.5-16.3)
[2019-07-07 07:59] LABS: ALANINE AMINOTRANSFERASE 12 U/L (16-63); ALKALINE PHOSPHATASE 75 U/L (50-136); ASPARTATE AMINOTRANSFERASE 10 U/L (15-37); BILIRUBIN,TOTAL 0.8 mg/dL (0.2-1.0); CARBON DIOXIDE 25 mmol/L (21-32); CHLORIDE 107 mmol/L (98-107); CREATININE 1.1 mg/dL (0.6-1.3); GLUCOSE 98 mg/dL (74-106); POTASSIUM 4.1 mmol/L (3.5-5.1); TOTAL PROTEIN, SERUM 7.2 g/dL (6.4-8.2); UREA NITROGEN, BLOOD 19 mg/dL (7-18)
[2019-07-07] MEDS: CHOLECALCIFEROL 1,000 UNIT TABLET PO SCH (08:37)
[2019-07-07] MEDS: METOPROLOL TARTRATE 25 MG TABLET PO SCH ×2 (08:38→17:19)
[2019-07-07] MEDS: NICOTINE 7 MG/24HR PATCH TD SCH (08:42)
[2019-07-07] MEDS: OXYBUTYNIN CHLORIDE 5 MG TABLET PO SCH ×2 (08:42→17:19)
[2019-07-07 10:41] LABS: EOSINOPHILS % (MANUAL) 3 % (0-8); LYMPHOCYTES % (MANUAL) 21 % (20-40); MONOCYTES % (MANUAL) 9 % (2-10); NEUTROPHILS % (MANUAL) 67 % (42-75)
--- NOTE | 2019-07-07 15:44 | NUR ---
SIDDHARTHA called [facility] at, , no answer. SIDDHARTHA will call again at a later time.
--- NOTE | 2019-07-07 15:44 | NUR ---
Initial discharge plan: Pt currently lives at [facility] at [id number] [place] [id number]; . Per pt, he would like to return to the facility after discharge. SIDDHARTHA will work with the pt, pt family, and MD regarding appropriate discharge planning. SW will form a safe and proper discharge.
[2019-07-07 16:00] VITALS: BP 130/61
[2019-07-07] MEDS: DIVALPROEX 250 MG TABLET.DR PO SCH (17:38)
[2019-07-07 19:51] VITALS: BP 115/63
[2019-07-07] MEDS: ATORVASTATIN 20 MG TABLET PO SCH (20:05)
[2019-07-07] MEDS: LITHIUM CARBONATE 300 MG CAPSULE PO SCH (20:05)
[2019-07-07] MEDS: OLANZAPINE 5 MG TABLET PO SCH (20:05)
--- NOTE | 2019-07-07 22:00 | NUR ---
received to care, up in w/c, calm and cooperative, watching tv, pleasant upon approach. compliant with medications and staff direction. remains hyperverbal, at times. interacts minimally with peers. as of 2199, he appears to be asleep. no distress noted. will continue to monitor closely.
--- NOTE | 2019-07-08 06:00 | NUR ---
slept well, last night, 8 hours, total. is now awake, up in w/c. remains pleasant and calm. no distress noted.
[2019-07-08 07:30] VITALS: BP 125/39
[2019-07-08] MEDS: LORAZEPAM 0.5 MG TABLET PO PRN ×2 (08:02→16:38)
[2019-07-08] MEDS: OXYBUTYNIN CHLORIDE 5 MG TABLET PO SCH ×2 (08:10→16:38)
[2019-07-08] MEDS: OLANZAPINE 5 MG TABLET PO SCH ×2 (08:10→20:59)
[2019-07-08] MEDS: LITHIUM CARBONATE 300 MG CAPSULE PO SCH ×2 (08:10→20:57)
[2019-07-08] MEDS: DIVALPROEX 250 MG TABLET.DR PO SCH ×2 (08:10→16:38)
[2019-07-08] MEDS: CHOLECALCIFEROL 1,000 UNIT TABLET PO SCH (08:10)
[2019-07-08] MEDS: NICOTINE 7 MG/24HR PATCH TD SCH (08:12)
[2019-07-08] MEDS: METOPROLOL TARTRATE 25 MG TABLET PO SCH ×2 (08:13→16:49)
[2019-07-08 16:00] VITALS: BP 98/62
[2019-07-08 19:53] VITALS: BP 104/45
[2019-07-08] MEDS: ATORVASTATIN 20 MG TABLET PO SCH (20:57)
--- NOTE | 2019-07-08 23:48 | NUR ---
RECEIVED PATIENT IN BED.MINIMAL INTERACTION BUT TOOK MEDS WELL.WAS LATER GIVEN RESTORIL AT 22;06 REQUESTED.SLEEPING AT THIS TIME.WAS HEARD TALKING TO HIMSELF BUT DENIED AH. COOPERATIVE WITH STAFF FOR HIS CARE. WILL CONTINUE TO MONITOR.
--- NOTE | 2019-07-09 07:02 | NUR ---
SLEPT FOR APPROX 08;00HRS
[2019-07-09 07:46] VITALS: BP 110/52
[2019-07-09] MEDS: LORAZEPAM 0.5 MG TABLET PO PRN (07:59)
[2019-07-09] MEDS: NICOTINE 7 MG/24HR PATCH TD SCH (08:21)
[2019-07-09] MEDS: OXYBUTYNIN CHLORIDE 5 MG TABLET PO SCH ×2 (08:21→16:55)
[2019-07-09] MEDS: CHOLECALCIFEROL 1,000 UNIT TABLET PO SCH (08:22)
[2019-07-09] MEDS: LITHIUM CARBONATE 300 MG CAPSULE PO SCH ×2 (08:22→21:15)
[2019-07-09] MEDS: DIVALPROEX 250 MG TABLET.DR PO SCH ×2 (08:22→16:55)
[2019-07-09] MEDS: OLANZAPINE 5 MG TABLET PO SCH ×2 (08:22→21:15)
[2019-07-09] MEDS: METOPROLOL TARTRATE 25 MG TABLET PO SCH ×2 (08:22→16:56)
[2019-07-09 15:44] VITALS: BP 110/50
[2019-07-09 19:47] VITALS: BP 107/53
[2019-07-09] MEDS: ATORVASTATIN 20 MG TABLET PO SCH (21:15)
--- NOTE | 2019-07-09 22:00 | NUR ---
Pt found in his room coloring on the bathroom door and floor with a purple crayon. Pt was initially uncooperative and refused to give staff the crayon. With prompting and redirection, staff was able to take possession of the crayon. EVS notified and the graffiti was removed.
--- NOTE | 2019-07-10 07:00 | NUR ---
Slept 8.3 hours during the shift denies of any distress.
[2019-07-10 07:30] VITALS: BP 109/79
[2019-07-10] MEDS: LORAZEPAM 0.5 MG TABLET PO PRN (08:35)
[2019-07-10] MEDS: CHOLECALCIFEROL 1,000 UNIT TABLET PO SCH (08:42)
[2019-07-10] MEDS: LITHIUM CARBONATE 300 MG CAPSULE PO SCH ×2 (08:42→20:22)
[2019-07-10] MEDS: DIVALPROEX 250 MG TABLET.DR PO SCH ×2 (08:42→17:18)
[2019-07-10] MEDS: OXYBUTYNIN CHLORIDE 5 MG TABLET PO SCH ×2 (08:42→17:18)
[2019-07-10] MEDS: NICOTINE 7 MG/24HR PATCH TD SCH (08:42)
[2019-07-10] MEDS: OLANZAPINE 5 MG TABLET PO SCH ×2 (08:43→20:22)
[2019-07-10] MEDS: METOPROLOL TARTRATE 25 MG TABLET PO SCH ×2 (08:43→17:00)
[2019-07-10 16:00] VITALS: BP 98/52
[2019-07-10 19:47] VITALS: BP 106/42
[2019-07-10] MEDS: ATORVASTATIN 20 MG TABLET PO SCH (20:22)
--- NOTE | 2019-07-11 06:49 | NUR ---
PATIENT SLEPT FOR APPROX 9.30 HRS THROUGH THE NIGHT. HE WAS ABLE TO COMPLY WITH MEDICATION REGIMENT. HE CONTINUE WITHDRAWN, ISOLATIVE. HE COVERS HIS HEAD AND FACE WITH HIS BLANKET. HE IS ABLE TO BE REDIRECTED. WILL CONTINUE TO MONITOR.
[2019-07-11 07:30] VITALS: BP 100/47
[2019-07-11] MEDS: DIVALPROEX 250 MG TABLET.DR PO SCH ×2 (08:06→17:18)
[2019-07-11] MEDS: CHOLECALCIFEROL 1,000 UNIT TABLET PO SCH (08:06)
[2019-07-11] MEDS: OXYBUTYNIN CHLORIDE 5 MG TABLET PO SCH ×2 (08:06→17:00)
[2019-07-11] MEDS: NICOTINE 7 MG/24HR PATCH TD SCH (08:06)
[2019-07-11] MEDS: OLANZAPINE 5 MG TABLET PO SCH ×2 (08:06→20:08)
[2019-07-11] MEDS: METOPROLOL TARTRATE 25 MG TABLET PO SCH ×2 (08:07→17:20)
[2019-07-11] MEDS: LITHIUM CARBONATE 300 MG CAPSULE PO SCH (08:07)
[2019-07-11 15:02] VITALS: BP 118/61
[2019-07-11] MEDS: ATORVASTATIN 20 MG TABLET PO SCH (20:07)
[2019-07-11 20:33] VITALS: BP 101/53
--- NOTE | 2019-07-11 20:39 | NUR ---
Received patient in bed, AO x1. calm and cooperative, med compliant, denies harming self/others. concern about getting a job when he goes home. no indication of pain or discomfort. will continue to monitor.
[2019-07-12 07:30] VITALS: BP 100/47
[2019-07-12] MEDS: METOPROLOL TARTRATE 25 MG TABLET PO SCH ×2 (09:00→17:02)
[2019-07-12] MEDS: DIVALPROEX 250 MG TABLET.DR PO SCH ×2 (09:38→17:02)
[2019-07-12] MEDS: OXYBUTYNIN CHLORIDE 5 MG TABLET PO SCH ×2 (09:38→17:01)
[2019-07-12] MEDS: CHOLECALCIFEROL 1,000 UNIT TABLET PO SCH (09:38)
[2019-07-12] MEDS: OLANZAPINE 5 MG TABLET PO SCH ×2 (09:39→20:44)
[2019-07-12] MEDS: NICOTINE 7 MG/24HR PATCH TD SCH (09:39)
--- NOTE | 2019-07-12 15:19 | NUR ---
Discharge Planning: Per Brooke, school admissions representative at [facility] [[phone]], patient will be able to return to facility when he is ready for discharge, even if this passed the 7 day bed hold.
[2019-07-12 16:00] VITALS: BP 108/55
[2019-07-12] MEDS: ATORVASTATIN 20 MG TABLET PO SCH (20:44)
[2019-07-12 21:15] VITALS: BP 112/47
--- NOTE | 2019-07-12 22:00 | NUR ---
received to care, up in w/c, pleasant upon approach. compliant with medications and staff direction. remains hyperverbal, at times. interacts minimally with peers. as of 0, he appears to be asleep. no distress noted. will continue to monitor closely.
--- NOTE | 2019-07-13 06:00 | NUR ---
slept well 8 hours, total. is now awake, assisted with am care, and shower. no distress noted.
[2019-07-13 07:30] VITALS: BP 106/46
[2019-07-13] MEDS: CHOLECALCIFEROL 1,000 UNIT TABLET PO SCH (08:37)
[2019-07-13] MEDS: OLANZAPINE 5 MG TABLET PO SCH ×2 (08:37→20:21)
[2019-07-13] MEDS: METOPROLOL TARTRATE 25 MG TABLET PO SCH ×2 (08:38→17:11)
[2019-07-13] MEDS: DIVALPROEX 250 MG TABLET.DR PO SCH ×2 (08:38→17:10)
[2019-07-13] MEDS: OXYBUTYNIN CHLORIDE 5 MG TABLET PO SCH ×2 (08:39→17:10)
[2019-07-13] MEDS: NICOTINE 7 MG/24HR PATCH TD SCH (08:41)
--- NOTE | 2019-07-13 11:41 | NUR ---
FIREARMS REPORT: Insurance Claim Auditor completed and submitted a [employer] firearms report for [address] Disability certification. A copy of report has been placed in patient chart.
[2019-07-13 16:00] VITALS: BP 111/43
[2019-07-13 19:41] VITALS: BP 114/81
--- NOTE | 2019-07-13 20:00 | NUR ---
Patient received into care, resting comfortably in bed. Patient is alert and oriented x2 with no complaints of pain or discomfort at this time. All safety and fall precaution measures are in place. Will continue to monitor.
[2019-07-13] MEDS: ATORVASTATIN 20 MG TABLET PO SCH (20:21)
--- NOTE | 2019-07-14 06:00 | NUR ---
Patient slept throughout night, with 9 hours of sleep, and is currently in bed, resting comfortably. Patient was compliant with all prescribed medications and with all aspects of care. Safety and fall precaution measures remain in place. Patient is to be d/c today back to originating facility from where he came.
[2019-07-14] MEDS: CHOLECALCIFEROL 1,000 UNIT TABLET PO SCH (08:18)
[2019-07-14] MEDS: DIVALPROEX 250 MG TABLET.DR PO SCH (08:18)
[2019-07-14 08:19] VITALS: BP 132/61
[2019-07-14] MEDS: METOPROLOL TARTRATE 25 MG TABLET PO SCH (08:19)
[2019-07-14] MEDS: OXYBUTYNIN CHLORIDE 5 MG TABLET PO SCH (08:19)
[2019-07-14] MEDS: OLANZAPINE 5 MG TABLET PO SCH (08:19)
[2019-07-14] MEDS: NICOTINE 7 MG/24HR PATCH TD SCH (08:19)
--- NOTE | 2019-07-14 08:57 | NUR ---
Discharge Note: Patient will be discharged back to [facility] [[address] [place] [address]; ]. Organ Installer spoke with Brooke, wanda and caregiver, who stated patient will be accepted back at facility today. Patient�s caregiver Brooke will provide transportation for patient � brick picker arranged at 12:00pm. Patient�s LPS conservator/brother � Fuad Shore [[phone]] is aware and agreeable with discharge plan. Patient is scheduled to follow up with psychiatry at [facility] [ [place] [address]; [phone]] on Thursday, July 18, 2019 at 1:00pm � patient will be assigned to a provider on day of appointment. [facility] [[address] [place] [address]; [phone]] has arranged to have an RN and Organ Installer visit patient on Monday, July 15, 2019 for a follow-up. [facility] care packets have been faxed to both [facility] and [facility]. Patient was given outpatient mental health resources to [facility] , Lucy Barboza , and the National Suicide Prevention Lifeline .
--- NOTE | 2019-07-14 11:51 | NUR ---
This nurse called to the healthcare marketer Brooke and spoke her and ask patient pharmacy telepone number to called in prescription. Caregiver, Brooke asked what psych medication patient is on. Caregiver informed that patient on zyprexa 10 mg by mouth q [address] tab. 250 mg by mouth twice a day. Caregiver Brooke stated that patient has still enough supply of this medications.
--- NOTE | 2019-07-14 13:30 | NUR ---
Gps/Airport Operations Specialist- Caregiver Brooke in to cook pickled meat patient. reviewed mediciations/prescriptions, diet, safety skin care, verbalized understanding. Patient will follow up at [facility]. wednesday at 1300 pm. All belongings given back to patient. Patient's brother Jak Shore aware of dc. plan .Discharged via private car accompanied by Brooke (,Caregiver) pt.in good spirit, with no new c/o offered.
== END 2019-07-14 13:30 | DRG 885 ==
LOC: ER 14:41 → GPS 18:16
PROVIDERS: ADMIT Psychiatry & Neurology Psychiatry; ATTEND Nurse Practitioner Acute Care
DX: F31.2 Bipolar disorder, current episode manic severe with psychotic features (principal); N18.3 Chronic kidney disease, stage 3 (moderate); F02.81 Dementia in other diseases classified elsewhere, unspecified severity, with behavioral disturbance; G20 Parkinson's disease; Z89.511 Acquired absence of right leg below knee; E78.5 Hyperlipidemia, unspecified; K59.09 Other constipation; K59.00 Constipation, unspecified; Z91.83 Wandering in diseases classified elsewhere; D75.89 Other specified diseases of blood and blood-forming organs; R47.02 Dysphasia; Z79.899 Other long term (current) drug therapy
CPT/HCPCS: 36415; 70030-TC; 80164; 83921; 84443; 85025; 93005; A4663; A9150; G0480; G0480-TC; J3490

== ENCOUNTER 2019-09-10 17:42 | Inpatient (IN) | payer MEDICARE, OTHER ==
[~2019-09-10] VITALS: Ht 172.7 cm; Wt 64.9 kg
[~2019-09-10 17:42] MED LIST changes: -ACET-2154 PO; -ACET325T53 PO; -HYDR-4354 PO; +MELA3TAB63 PO; -OXYB5TAB11 PO; +OXYB5TAB16 PO; -POLY255P19 PO
[2019-09-10] MEDS ORDERED: POLY17PO4 PO (18:18)
[2019-09-10] MEDS ORDERED: OLAN10TA3 PO (18:18)
[2019-09-10] MEDS ORDERED: CLON0.5T4 PO (18:18)
[2019-09-10] MEDS ORDERED: CHOL400C8 PO (18:18)
[2019-09-10] MEDS ORDERED: FERR325T28 PO (18:18)
[2019-09-10] MEDS ORDERED: VALP250S4 PO (18:18)
[2019-09-10] MEDS ORDERED: LITH8SOL6 PO (18:18)
--- NOTE | 2019-09-10 18:40 | NUR ---
at bedside to examine patient.
[2019-09-10 18:52] LABS: BASOPHILS % (AUTO) 0.2 % (0.0-2.0); EOSINOPHILS # (AUTO) 0.1 K/uL (0.0-0.7); EOSINOPHILS % (AUTO) 3.1 % (0.0-7.0); HEMATOCRIT 35.7 % (36.7-47.1); LYMPHOCYTES # (AUTO) 1.6 K/uL (20.0-40.0); LYMPHOCYTES % (AUTO) 32.5 % (20.5-51.5); MEAN CORPUSCULAR HEMOGLOBIN 34.6 uug (23.8-33.4); MEAN CORPUSCULAR HGB CONC 34 g/dL (32.5-36.3); MEAN CORPUSCULAR VOLUME 103.2 fL (73.0-96.2); MONOCYTES # (AUTO) 0.5 K/uL (2.0-10.0); MONOCYTES % (AUTO) 9.6 % (0.0-11.0); NEUTROPHILS # (AUTO) 2.6 K/uL (1.8-8.9); NEUTROPHILS % (AUTO) 54.6 % (38.5-71.5); PLATELET COUNT (AUTO) 84 K/uL (152-348); RED BLOOD CELL COUNT(AUTO) 3.46 MIL/uL (4.06-5.63); WHITE BLOOD COUNT (AUTO) 4.8 K/uL (3.6-10.2)
--- NOTE | 2019-09-10 19:04 | NUR ---
Report given to sujatha Richter
[2019-09-10 19:09] LABS: BILIRUBIN,DIRECT 0.1 mg/dL (0.0-0.2); BILIRUBIN,TOTAL 0.3 mg/dL (0.2-1.0); CREATININE 1.2 mg/dL (0.6-1.3); POTASSIUM 4.9 mmol/L (3.5-5.1); TOTAL PROTEIN, SERUM 6.6 g/dL (6.4-8.2)
[2019-09-10 20:01] LABS: EOSINOPHILS % (MANUAL) 1 % (0-8); LYMPHOCYTES % (MANUAL) 35 % (20-40); MONOCYTES % (MANUAL) 5 % (2-10); NEUTROPHILS % (MANUAL) 59 % (42-75)
[2019-09-10] MEDS ORDERED: LIDOCAINE 2% (UROJET) 10 ML JELLY MM ONE ×2 (20:28→20:30)
[2019-09-10] MEDS ORDERED: PIPERACILLIN SODIUM/TAZOBACTAM 3.375 G in IV DEXTROSE 5% 50 ML IV ONE (20:30)
[2019-09-10 20:50] LABS: *BILIRUBIN,URIN NEGATIVE (NEGATIVE); *BLOOD, URINE 1+ (NEGATIVE); *CLARITY,URINE CLEAR (CLEAR); *COLOR,URINE YELLOW (YELLOW); *KETONES,URINE NEGATIVE (NEGATIVE); *UROBILINOGEN,URINE 0.2 E.U./dl (NORMAL); LEUKOCYTE ESTERASE ,URINE NEGATIVE (NEGATIVE); NITRITE, URINE NEGATIVE (NEGATIVE); PH,URINE 7.5 (5.0-8.0); UGLUCOSE NEGATIVE (NEGATIVE)
[2019-09-10 21:11] LABS: BACTERIA,URINE NONE SEEN /HPF (NONE SEEN); SQUAMOUS EPITHELIAL CELL,UR FEW /HPF (NONE SEEN); WBC,URINE 0-3 /HPF (0-3)
[2019-09-10] MEDS ORDERED: MAGNESIUM HYDROXIDE 30 ML LIQUID UDC PO PRN (21:15)
[2019-09-10] MEDS ORDERED: CLONAZEPAM 0.5 MG TABLET PO PRN (21:15)
[2019-09-10] MEDS ORDERED: Z GUARD REMEDY PASTE 57 GM TUBE TOP PRN (21:15)
[2019-09-10] MEDS ORDERED: ONDANSETRON 4 MG/2 ML VIAL IV PRN (21:15)
[2019-09-10] MEDS ORDERED: HYDROCODONE/APAP 5-325MG TABLET PO PRN (21:15)
[2019-09-10] MEDS ORDERED: ACETAMINOPHEN 325 MG TABLET PO PRN (21:15)
[2019-09-10] MEDS ORDERED: MORPHINE SULFATE 2 MG/1 ML DISP.SYRIN IV PRN (21:15)
[2019-09-10] MEDS ORDERED: PIPERACILLIN/TAZOBACTAM/D5W 50 ML IV ONE (21:16)
--- NOTE | 2019-09-10 21:38 | NUR ---
Report given to FREDDIE Grant
--- NOTE | 2019-09-10 22:20 | NUR ---
Admitted 73y/o M under the care of Mabel RUCKER. Dx: Acute Diverticulitis. Patient is A&Ox1. No complaints of pain at this time. Oriented patient to his room and with the use of call light. Admission protocol initiated. Safety measures observed. Call light in reach
[2019-09-10] MEDS ORDERED: METRONIDAZOLE 500 MG/NS 100ML 500 MG in PREMIXED 1 EACH IV ONE (22:30)
--- NOTE | 2019-09-10 22:31 | NUR ---
Patient transported to [place] in stable condition.
[2019-09-10 22:41] VITALS: BP 150/59
[2019-09-10] MEDS: IV 1/2NS 1000 ML 1,000 ML IV PRN (22:55)
[2019-09-10] MEDS ORDERED: METRONIDAZOLE 500 MG/NS 100ML 200 ML IV ONE (23:02)
[2019-09-10] MEDS ORDERED: CEFTRIAXONE 1 G VIAL ONE (23:02)
[2019-09-10] MEDS: CEFTRIAXONE 1 G in IV DEXTROSE 5% 50 ML IV SCH (23:16)
[2019-09-11] MEDS: TEMAZEPAM 15 MG CAPSULE PO PRN ×2 (01:25→22:54)
[2019-09-11 05:14] VITALS: BP 101/46
[2019-09-11] MEDS: METRONIDAZOLE 500 MG/NS 100ML 500 MG in PREMIXED 1 EACH IV SCH ×3 (05:49→21:00)
[2019-09-11] MEDS: PANTOPRAZOLE SODIUM 40 MG TABLET.DR PO SCH (06:14)
[2019-09-11 06:47] LABS: BILIRUBIN,TOTAL 0.3 mg/dL (0.2-1.0); CREATININE 1.1 mg/dL (0.6-1.3); MAGNESIUM 1.6 mg/dL (1.8-2.4); PHOSPHOROUS 2.9 mg/dL (2.5-4.9); POTASSIUM 4.1 mmol/L (3.5-5.1); TOTAL PROTEIN, SERUM 6.2 g/dL (6.4-8.2)
--- NOTE | 2019-09-11 06:56 | NUR ---
Patient slept intermittently. No complaints of pain. All needs attended. Will endorse accordingly
[2019-09-11 07:01] LABS: BASOPHILS % (AUTO) 0.3 % (0.0-2.0); EOSINOPHILS # (AUTO) 0.2 K/uL (0.0-0.7); HEMATOCRIT 34.3 % (36.7-47.1); HEMOGLOBIN 11.4 g/dL (12.5-16.3); LYMPHOCYTES # (AUTO) 1.7 K/uL (20.0-40.0); LYMPHOCYTES % (AUTO) 37.9 % (20.5-51.5); MEAN CORPUSCULAR HEMOGLOBIN 34.6 uug (23.8-33.4); MEAN CORPUSCULAR HGB CONC 33 g/dL (32.5-36.3); MEAN CORPUSCULAR VOLUME 103.7 fL (73.0-96.2); MONOCYTES # (AUTO) 0.4 K/uL (2.0-10.0); MONOCYTES % (AUTO) 8.8 % (0.0-11.0); NEUTROPHILS # (AUTO) 2.2 K/uL (1.8-8.9); PLATELET COUNT (AUTO) 76 K/uL (152-348); RED BLOOD CELL COUNT(AUTO) 3.31 MIL/uL (4.06-5.63); WHITE BLOOD COUNT (AUTO) 4.4 K/uL (3.6-10.2)
--- NOTE | 2019-09-11 08:00 | NUR ---
Received patient awake in bed. AAOx2. In no acute distress. Denies pain at this time. No SOB noted. IV intact and patent. 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 Safety measures implemented. Call light within reach. Will continue to monitor.
[2019-09-11] MEDS ORDERED: MAGNESIUM OXIDE 400 MG TABLET PO ONE (08:15)
[2019-09-11 08:34] LABS: EOSINOPHILS % (MANUAL) 2 % (0-8); LYMPHOCYTES % (MANUAL) 38 % (20-40); MONOCYTES % (MANUAL) 13 % (2-10); NEUTROPHILS % (MANUAL) 47 % (42-75)
[2019-09-11] MEDS: CHOLECALCIFEROL 400 UNITS TABLET PO SCH (08:40)
[2019-09-11] MEDS: OMEGA-3 FATTY ACIDS/FISH OIL CAPSULE PO SCH ×2 (08:40→17:00)
[2019-09-11] MEDS: FERROUS SULFATE 325 MG TABEC PO SCH (08:41)
[2019-09-11] MEDS: METOPROLOL TARTRATE 25 MG TABLET PO SCH ×2 (08:41→17:00)
[2019-09-11] MEDS: VALPROIC ACID 250 MG/5 ML LIQUID UDC PO SCH ×2 (08:42→17:29)
[2019-09-11] MEDS: OXYBUTYNIN CHLORIDE 5 MG TABLET PO SCH ×2 (08:42→17:29)
[2019-09-11] MEDS: OLANZAPINE 5 MG TABLET PO SCH ×2 (08:42→17:29)
[2019-09-11] MEDS: NICOTINE 14 MG/24HR PATCH TD SCH (08:50)
[2019-09-11] MEDS ORDERED: LITHIUM CITRATE 8 MEQ PO SCH (09:00)
[2019-09-11] MEDS ORDERED: Medication Not On Formulary EA (Olanzapine (Zyprexa) 10 MG) PO SCH (09:00)
[2019-09-11] MEDS ORDERED: Medication Not On Formulary EA (Omega-3/Dha/Epa/Fish Oil (Fish Oil 1,000 mg Softgel) 1,0 PO SCH (09:00)
[2019-09-11 11:27] VITALS: BP 112/52
[2019-09-11] MEDS ORDERED: MIRALAX 17 GM POWD.PACK PO PRN (12:18)
[2019-09-11] MEDS ORDERED: LITHIUM CARBONATE 300 MG TABLET.SA PO SCH (12:26)
[2019-09-11] MEDS: IV 1/2NS 1000 ML 1,000 ML IV PRN (13:48)
[2019-09-11 15:37] VITALS: BP 96/42
[2019-09-11] MEDS: LITHIUM CARBONATE 300 MG CAPSULE PO SCH (17:30)
--- NOTE | 2019-09-11 18:00 | NUR ---
Administered ordered 0900 Fish oil capsule. Upon swallowing, patient almost aspirated. Held 1700 dose. Patient tolerated other ordered medications. In no acute distress. Denies pain at this time. No SOB noted. Comfort provided at all times. All needs met. Will endorse care accordingly.
[2019-09-11 20:00] VITALS: BP 109/44
--- NOTE | 2019-09-11 20:00 | NUR ---
Patient received into care resting in bed, watching television. Patient is alert/oriented x2 and has no complaints of pain at this time. IV site is patent and intact and IVF 1/2 NS is running @ 80mL/hr. Allergies are noted. All safety and fall precaution measures are in place. Call light and personal items are within reach at all times. Will continue to monitor.
[2019-09-11] MEDS: ATORVASTATIN 20 MG TABLET PO SCH (20:53)
[2019-09-11] MEDS: DOCUSATE SODIUM 100 MG CAPSULE PO SCH (20:53)
[2019-09-11] MEDS: CEFTRIAXONE 1 G in IV DEXTROSE 5% 50 ML IV SCH (22:06)
[2019-09-12] MEDS: IV 1/2NS 1000 ML 1,000 ML IV PRN ×2 (03:34→23:50)
[2019-09-12 05:00] VITALS: BP 120/65
[2019-09-12] MEDS: METRONIDAZOLE 500 MG/NS 100ML 500 MG in PREMIXED 1 EACH IV SCH ×3 (05:01→22:11)
[2019-09-12] MEDS: PANTOPRAZOLE SODIUM 40 MG TABLET.DR PO SCH (06:43)
--- NOTE | 2019-09-12 06:49 | NUR ---
Patient slept intermittently throughout night with no complaints of pain or discomfort verbalized. All prescribed medications provided as ordered and tolerated well with no adverse side effects verbalized or observed. All safety and fall precaution measures remain in place. Call light and personal items are within reach at all times.
--- NOTE | 2019-09-12 07:15 | NUR ---
Patient received on bed, AAOx2 no acute distress noted. IVF infusing well. denies pain at this time, comfort measures provided. bed alarm on. call light within reach. will continue to monitor closely.
[2019-09-12 07:25] LABS: BASOPHILS % (AUTO) 0.4 % (0.0-2.0); EOSINOPHILS # (AUTO) 0.2 K/uL (0.0-0.7); EOSINOPHILS % (AUTO) 4.1 % (0.0-7.0); HEMATOCRIT 35.9 % (36.7-47.1); HEMOGLOBIN 12.1 g/dL (12.5-16.3); LYMPHOCYTES # (AUTO) 1.3 K/uL (20.0-40.0); LYMPHOCYTES % (AUTO) 26.6 % (20.5-51.5); MEAN CORPUSCULAR HEMOGLOBIN 34.2 uug (23.8-33.4); MEAN CORPUSCULAR HGB CONC 34 g/dL (32.5-36.3); MEAN CORPUSCULAR VOLUME 101.7 fL (73.0-96.2); MONOCYTES # (AUTO) 0.4 K/uL (2.0-10.0); MONOCYTES % (AUTO) 8.7 % (0.0-11.0); NEUTROPHILS % (AUTO) 60.2 % (38.5-71.5); PLATELET COUNT (AUTO) 84 K/uL (152-348); RED BLOOD CELL COUNT(AUTO) 3.53 MIL/uL (4.06-5.63)
[2019-09-12 07:44] LABS: CARBON DIOXIDE 25 mmol/L (21-32); CHLORIDE 110 mmol/L (98-107); GLUCOSE 103 mg/dL (74-106); MAGNESIUM 1.5 mg/dL (1.8-2.4); POTASSIUM 4.2 mmol/L (3.5-5.1); UREA NITROGEN, BLOOD 14 mg/dL (7-18)
[2019-09-12 08:24] LABS: EOSINOPHILS % (MANUAL) 5 % (0-8); LYMPHOCYTES % (MANUAL) 27 % (20-40); MONOCYTES % (MANUAL) 7 % (2-10); NEUTROPHILS % (MANUAL) 61 % (42-75)
[2019-09-12] MEDS: OMEGA-3 FATTY ACIDS/FISH OIL CAPSULE PO SCH ×2 (08:37→17:33)
[2019-09-12] MEDS: FERROUS SULFATE 325 MG TABEC PO SCH (08:37)
[2019-09-12] MEDS: CHOLECALCIFEROL 400 UNITS TABLET PO SCH (08:37)
[2019-09-12] MEDS: VALPROIC ACID 250 MG/5 ML LIQUID UDC PO SCH ×2 (08:37→17:33)
[2019-09-12] MEDS: OXYBUTYNIN CHLORIDE 5 MG TABLET PO SCH ×2 (08:37→17:33)
[2019-09-12] MEDS: OLANZAPINE 5 MG TABLET PO SCH ×2 (08:37→17:33)
[2019-09-12] MEDS: LITHIUM CARBONATE 300 MG CAPSULE PO SCH ×2 (08:38→17:33)
[2019-09-12] MEDS: METOPROLOL TARTRATE 25 MG TABLET PO SCH ×2 (08:38→17:00)
[2019-09-12] MEDS: NICOTINE 14 MG/24HR PATCH TD SCH (08:41)
[2019-09-12] MEDS: MAGNESIUM SULFATE/D5W 100 ML IV SCH ×4 (10:40→14:55)
[2019-09-12 11:11] VITALS: BP 111/62
[2019-09-12 11:13] VITALS: BP 116/41
--- NOTE | 2019-09-12 17:51 | NUR ---
Patient in stable condition. No significant change of condition t/o shift. seen and examined by WASHINGTON Solorio AIR BAG CURER. will endorse accordingly.
--- NOTE | 2019-09-12 19:39 | NUR ---
Received patient in bed resting. AO x 2. No acute distress noted, no SOB. Immediate needs attended. Safety protocols in place. Will continue to monitor throughout shift.
[2019-09-12 20:02] VITALS: BP 130/44
[2019-09-12] MEDS: DOCUSATE SODIUM 100 MG CAPSULE PO SCH (20:32)
[2019-09-12] MEDS: ATORVASTATIN 20 MG TABLET PO SCH (20:32)
[2019-09-12] MEDS ORDERED: CEFTRIAXONE 2 G in IV DEXTROSE 5% 100 ML IV SCH (22:00)
[2019-09-13 04:59] VITALS: BP 123/66
[2019-09-13] MEDS: METRONIDAZOLE 500 MG/NS 100ML 500 MG in PREMIXED 1 EACH IV SCH ×2 (05:25→13:27)
[2019-09-13] MEDS: PANTOPRAZOLE SODIUM 40 MG TABLET.DR PO SCH (06:04)
--- NOTE | 2019-09-13 06:06 | NUR ---
Patient slept intermittently throughout the night. Had two large bowel movements within this shift, and he states he is having more bowel movements than usual. Comfort provided to patient, and all needs attended. Tolerated medications. Vitals normal. Will endorse care to oncoming shift.
[2019-09-13 06:39] LABS: BASOPHILS % (AUTO) 0.2 % (0.0-2.0); EOSINOPHILS % (AUTO) 0.8 % (0.0-7.0); HEMATOCRIT 35.8 % (36.7-47.1); LYMPHOCYTES # (AUTO) 0.8 K/uL (20.0-40.0); LYMPHOCYTES % (AUTO) 15.3 % (20.5-51.5); MEAN CORPUSCULAR HEMOGLOBIN 34.1 uug (23.8-33.4); MEAN CORPUSCULAR HGB CONC 34 g/dL (32.5-36.3); MEAN CORPUSCULAR VOLUME 101.6 fL (73.0-96.2); MONOCYTES # (AUTO) 0.4 K/uL (2.0-10.0); MONOCYTES % (AUTO) 7.2 % (0.0-11.0); NEUTROPHILS # (AUTO) 4.2 K/uL (1.8-8.9); NEUTROPHILS % (AUTO) 76.5 % (38.5-71.5); PLATELET COUNT (AUTO) 90 K/uL (152-348); RED BLOOD CELL COUNT(AUTO) 3.52 MIL/uL (4.06-5.63); WHITE BLOOD COUNT (AUTO) 5.5 K/uL (3.6-10.2)
[2019-09-13 06:52] LABS: CARBON DIOXIDE 29 mmol/L (21-32); CHLORIDE 109 mmol/L (98-107); GLUCOSE 142 mg/dL (74-106); MAGNESIUM 1.9 mg/dL (1.8-2.4); PHOSPHOROUS 2.8 mg/dL (2.5-4.9); POTASSIUM 4.7 mmol/L (3.5-5.1); UREA NITROGEN, BLOOD 12 mg/dL (7-18)
--- NOTE | 2019-09-13 07:30 | NUR ---
RECEIVED PATIENT IN RESTING WITH NO S/S OF ACUTE DISTRESS NOTED AT THIS TIME. NO SOB NOTED. SAFETY AND COMFORT PROVIDED. CALL LIGHT WITHIN REACHED. WILL CONTINUE TO MONITOR.
[2019-09-13] MEDS ORDERED: CEFTRIAXONE 2 G VIAL IM SCH (09:00)
[2019-09-13] MEDS: OMEGA-3 FATTY ACIDS/FISH OIL CAPSULE PO SCH (09:27)
[2019-09-13] MEDS: OXYBUTYNIN CHLORIDE 5 MG TABLET PO SCH (09:27)
[2019-09-13] MEDS: FERROUS SULFATE 325 MG TABEC PO SCH (09:27)
[2019-09-13] MEDS: CHOLECALCIFEROL 400 UNITS TABLET PO SCH (09:27)
[2019-09-13] MEDS: OLANZAPINE 5 MG TABLET PO SCH (09:27)
[2019-09-13] MEDS: LITHIUM CARBONATE 300 MG CAPSULE PO SCH (09:27)
[2019-09-13] MEDS: METOPROLOL TARTRATE 25 MG TABLET PO SCH (09:28)
[2019-09-13] MEDS: NICOTINE 14 MG/24HR PATCH TD SCH (09:43)
[2019-09-13] MEDS: VALPROIC ACID 250 MG/5 ML LIQUID UDC PO SCH (09:44)
[2019-09-13] MEDS ORDERED: CHOL400T28 PO (10:20)
[2019-09-13] MEDS ORDERED: METR500T PO (10:20)
[2019-09-13] MEDS ORDERED: LITH300C4 PO (10:20)
[2019-09-13] MEDS ORDERED: LEVO750T21 PO (10:20)
[2019-09-13 11:05] VITALS: BP 118/44
[2019-09-13] MEDS: IV 1/2NS 1000 ML 1,000 ML IV PRN (13:23)
[2019-09-13 15:16] VITALS: BP 101/47
--- NOTE | 2019-09-13 15:55 | NUR ---
discharge patient via private car , discharge instruction given and prescription of medication given and provided medication education. patient verbalized understanding. no c/o pain or SOB noted at this time. IV and ID band removed. kept clean and dry at all times. questions and concerns addressed.
== END 2019-09-13 15:55 | DRG 391 ==
LOC: ER 17:42 → MEDSURG3 22:07
PROVIDERS: ADMIT Nurse Practitioner Acute Care; ATTEND Nurse Practitioner Acute Care
DX: K57.32 Diverticulitis of large intestine without perforation or abscess without bleeding (principal); G93.41 Metabolic encephalopathy; J98.11 Atelectasis; R13.12 Dysphagia, oropharyngeal phase; Z89.511 Acquired absence of right leg below knee; E83.42 Hypomagnesemia; E78.5 Hyperlipidemia, unspecified; N43.3 Hydrocele, unspecified; G20 Parkinson's disease; M51.36 Other intervertebral disc degeneration, lumbar region; D63.8 Anemia in other chronic diseases classified elsewhere; F25.0 Schizoaffective disorder, bipolar type; G89.29 Other chronic pain; F17.210 Nicotine dependence, cigarettes, uncomplicated; I34.1 Nonrheumatic mitral (valve) prolapse; Z79.899 Other long term (current) drug therapy; N18.3 Chronic kidney disease, stage 3 (moderate); D75.89 Other specified diseases of blood and blood-forming organs; N28.1 Cyst of kidney, acquired
CPT/HCPCS: 36415; 70030-TC; 76870; 80164; 83690; 83735; 84100; 85025; 85730; 87086; A4663; C1758; G0378; J0696; J2405; J2543; J3475; J3490; J7060; J8499

== ENCOUNTER 2020-05-19 14:17 | Inpatient (IN) | payer MEDICARE, OTHER ==
[~2020-05-19] VITALS: Ht 165.1 cm; Wt 68.0 kg
[~2020-05-19 14:17] MED LIST changes: -CHOL100043 PO; +CHOL400C8 PO; +CHOL400T28 PO; +CLON0.5T4 PO; +FERR325T28 PO; +LEVO750T21 PO; +LITH300C4 PO; +LITH8SOL6 PO; +MELA3TAB41 PO; -MELA3TAB63 PO; +METR500T PO; -MULT1TAB73 PO; +OLAN10TA3 PO; +POLY17PO4 PO; -SENN1TAB33 PO; +VALP250S4 PO; -VITS42.53 TP
[2020-05-19 14:57] LABS: *BILIRUBIN,URIN NEGATIVE (NEGATIVE); *CLARITY,URINE CLEAR (CLEAR); *COLOR,URINE YELLOW (YELLOW); *KETONES,URINE NEGATIVE (NEGATIVE); *UROBILINOGEN,URINE 0.2 E.U./dl (NORMAL); LEUKOCYTE ESTERASE ,URINE NEGATIVE (NEGATIVE); NITRITE, URINE NEGATIVE (NEGATIVE); PH,URINE 5.5 (5.0-8.0); UGLUCOSE NEGATIVE (NEGATIVE)
[2020-05-19 15:01] LABS: *BLOOD, URINE TRACE (NEGATIVE)
[2020-05-19 15:06] LABS: BASOPHILS % (AUTO) 0.4 % (0.0-2.0); EOSINOPHILS # (AUTO) 0.1 K/uL (0.0-0.7); EOSINOPHILS % (AUTO) 1.3 % (0.0-7.0); HEMATOCRIT 37.1 % (36.7-47.1); HEMOGLOBIN 12.5 g/dL (12.5-16.3); LYMPHOCYTES # (AUTO) 2.4 K/uL (20.0-40.0); MEAN CORPUSCULAR HEMOGLOBIN 34.1 uug (23.8-33.4); MEAN CORPUSCULAR HGB CONC 34 g/dL (32.5-36.3); MEAN CORPUSCULAR VOLUME 101.4 fL (73.0-96.2); MONOCYTES # (AUTO) 0.5 K/uL (2.0-10.0); MONOCYTES % (AUTO) 7.6 % (0.0-11.0); NEUTROPHILS # (AUTO) 3.8 K/uL (1.8-8.9); NEUTROPHILS % (AUTO) 55.7 % (38.5-71.5); PLATELET COUNT (AUTO) 147 K/uL (152-348); RED BLOOD CELL COUNT(AUTO) 3.66 MIL/uL (4.06-5.63); WHITE BLOOD COUNT (AUTO) 6.7 K/uL (3.6-10.2)
[2020-05-19] MEDS ORDERED: VITS42.53 TP (15:07)
[2020-05-19] MEDS ORDERED: [UNRECOGNIZED DRUG - OTHER] PO (15:07)
[2020-05-19] MEDS ORDERED: [UNRECOGNIZED DRUG - CODE] PO (15:07)
[2020-05-19] MEDS ORDERED: CARB-183 OP (15:07)
[2020-05-19 15:08] LABS: BACTERIA,URINE NONE SEEN /HPF (NONE SEEN); RBC,URINE 0-3 /HPF (0-3); SQUAMOUS EPITHELIAL CELL,UR NONE SEEN /HPF (NONE SEEN); WBC,URINE 0-3 /HPF (0-3)
[2020-05-19 15:09] LABS: CARBON DIOXIDE 27 mmol/L (21-32); CHLORIDE 105 mmol/L (98-107); CREATININE 1.2 mg/dL (0.6-1.3); GLUCOSE 111 mg/dL (74-106); POTASSIUM 4.6 mmol/L (3.5-5.1); UREA NITROGEN, BLOOD 15 mg/dL (7-18)
[2020-05-19 15:12] LABS: ETHANOL < 3 MG/DL (0-0)
[2020-05-19 15:15] LABS: ALANINE AMINOTRANSFERASE 14 U/L (16-63); ALKALINE PHOSPHATASE 60 U/L (50-136); ASPARTATE AMINOTRANSFERASE 15 U/L (15-37); BILIRUBIN,DIRECT < 0.1 mg/dL (0.0-0.2); BILIRUBIN,TOTAL 0.4 mg/dL (0.2-1.0); TOTAL PROTEIN, SERUM 6.8 g/dL (6.4-8.2)
[2020-05-19 15:15] LABS: *AMPHETAMINE, URINE NEGATIVE (NEGATIVE); *BARBITURATE, URINE NEGATIVE (NEGATIVE); *CANNABINOID, URINE NEGATIVE (NEGATIVE); *COCCAINE, URINE NEGATIVE (NEGATIVE); *OPIATE, URINE NEGATIVE (NEGATIVE); *PHENCYCLIDINE SCREEN,URINE NEGATIVE (NEGATIVE)
[2020-05-19 15:39] LABS: ACETAMINOPHEN < 2.0 ug/mL (10-30)
[2020-05-19] MEDS ORDERED: LORAZEPAM 2 MG/1 ML VIAL ONE (17:09)
[2020-05-19] MEDS ORDERED: HALOPERIDOL LACTATE 5 MG/1 ML VIAL ONE (17:09)
[2020-05-19] MEDS ORDERED: HALOPERIDOL LACTATE 5 MG/1 ML VIAL IM ONE (17:15)
[2020-05-19] MEDS ORDERED: LORAZEPAM 2 MG/1 ML VIAL IM ONE (17:15)
[2020-05-19] MEDS ORDERED: BLOOD SUGAR DIAGNOSTIC 1 EACH STRIP VI ONE (22:45)
[2020-05-19] MEDS ORDERED: MAG HYDROX/AL HYDROX/SIMETH 30 ML LIQUID UDC PO PRN (22:45)
[2020-05-19] MEDS ORDERED: LORAZEPAM 0.5 MG TABLET PO PRN (22:45)
[2020-05-19] MEDS ORDERED: MAGNESIUM HYDROXIDE 30 ML LIQUID UDC PO PRN (22:45)
[2020-05-19] MEDS ORDERED: ZOLPIDEM 5 MG TABLET PO PRN (22:45)
[2020-05-19 23:02] VITALS: BP 126/62
[2020-05-19] MEDS: ACETAMINOPHEN 325 MG TABLET PO PRN (23:20)
[2020-05-19] MEDS ORDERED: MIRALAX 17 GM POWD.PACK PO SCH (23:45)
[2020-05-19] MEDS ORDERED: POLYVINYL ALCOHOL OPHT DROPS 15 ML BOTTLE OP SCH (23:57)
[2020-05-20] MEDS ORDERED: POLYVINYL ALCOHOL OPHT DROPS 15 ML BOTTLE EACHEYE SCH (06:08)
[2020-05-20] MEDS ORDERED: MIRALAX 17 GM POWD.PACK PO PRN (06:15)
[2020-05-20] MEDS: CHOLECALCIFEROL 400 UNITS TABLET PO SCH (08:16)
[2020-05-20] MEDS: OXYBUTYNIN CHLORIDE 5 MG TABLET PO SCH ×2 (08:17→16:59)
[2020-05-20] MEDS: METOPROLOL TARTRATE 25 MG TABLET PO SCH ×2 (08:17→20:40)
[2020-05-20] MEDS: POLYVINYL ALCOHOL OPHT DROPS 15 ML BOTTLE EACHEYE SCH ×2 (08:17→20:49)
[2020-05-20 08:47] VITALS: BP 127/68
[2020-05-20] MEDS: Z GUARD REMEDY PASTE 57 GM TUBE TOP SCH ×2 (09:07→20:48)
[2020-05-20] MEDS ORDERED: MELATONIN 3 MG TABLET PO PRN (09:45)
[2020-05-20] MEDS ORDERED: CLONAZEPAM 0.5 MG TABLET PO PRN (09:45)
[2020-05-20] MEDS: FERROUS SULFATE 325 MG TABEC PO SCH (11:49)
[2020-05-20] MEDS: LITHIUM CARBONATE 300 MG CAPSULE PO SCH ×2 (11:49→20:39)
[2020-05-20] MEDS: OLANZAPINE 5 MG TABLET PO SCH ×2 (11:49→20:39)
[2020-05-20 12:25] LABS: THYROID STIMULATING HORMONE 3.357 mIU/mL (0.358-3.740)
[2020-05-20 15:56] VITALS: BP 135/63
[2020-05-20] MEDS: DIVALPROEX 500 MG TABLET.DR PO SCH (16:44)
[2020-05-20 20:07] VITALS: BP 109/58
[2020-05-20] MEDS: ATORVASTATIN 10 MG TABLET PO SCH (20:39)
[2020-05-20] MEDS ORDERED: ATORVASTATIN 20 MG TABLET PO SCH (21:00)
[2020-05-20] MEDS ORDERED: MELATONIN 3 MG TABLET PO SCH ×2 (21:00)
[2020-05-21 04:10] VITALS: BP 103/60
[2020-05-21 08:00] VITALS: BP 123/55
[2020-05-21] MEDS: OXYBUTYNIN CHLORIDE 5 MG TABLET PO SCH ×2 (08:07→17:00)
[2020-05-21] MEDS: LITHIUM CARBONATE 300 MG CAPSULE PO SCH ×2 (08:08→20:39)
[2020-05-21] MEDS: DIVALPROEX 500 MG TABLET.DR PO SCH ×2 (08:08→17:37)
[2020-05-21] MEDS: OLANZAPINE 5 MG TABLET PO SCH ×2 (08:08→20:39)
[2020-05-21] MEDS: CHOLECALCIFEROL 400 UNITS TABLET PO SCH (08:08)
[2020-05-21] MEDS: POLYVINYL ALCOHOL OPHT DROPS 15 ML BOTTLE EACHEYE SCH ×2 (08:09→20:41)
[2020-05-21] MEDS: Z GUARD REMEDY PASTE 57 GM TUBE TOP SCH ×2 (08:09→20:40)
[2020-05-21] MEDS: METOPROLOL TARTRATE 25 MG TABLET PO SCH ×2 (08:15→20:39)
[2020-05-21] MEDS ORDERED: FERROUS SULFATE 325 MG TABEC PO SCH (09:00)
[2020-05-21 17:12] VITALS: BP 131/71
[2020-05-21 20:20] VITALS: BP 108/57
[2020-05-21] MEDS: ATORVASTATIN 10 MG TABLET PO SCH (20:39)
[2020-05-22 07:30] VITALS: BP 119/62
[2020-05-22] MEDS: FERROUS SULFATE 325 MG TABEC PO SCH (09:42)
[2020-05-22] MEDS: METOPROLOL TARTRATE 25 MG TABLET PO SCH ×2 (09:42→20:48)
[2020-05-22] MEDS: POLYVINYL ALCOHOL OPHT DROPS 15 ML BOTTLE EACHEYE SCH ×2 (09:43→20:49)
[2020-05-22] MEDS: LITHIUM CARBONATE 300 MG CAPSULE PO SCH ×2 (09:43→20:47)
[2020-05-22] MEDS: OLANZAPINE 5 MG TABLET PO SCH ×2 (09:43→20:47)
[2020-05-22] MEDS: DIVALPROEX 500 MG TABLET.DR PO SCH ×2 (09:43→18:51)
[2020-05-22] MEDS: Z GUARD REMEDY PASTE 57 GM TUBE TOP SCH ×2 (09:44→20:48)
[2020-05-22] MEDS: CHOLECALCIFEROL 400 UNITS TABLET PO SCH (10:00)
[2020-05-22] MEDS: OXYBUTYNIN CHLORIDE 5 MG TABLET PO SCH ×2 (10:00→18:52)
[2020-05-22 16:00] VITALS: BP 119/69
[2020-05-22 20:45] VITALS: BP 108/79
[2020-05-22] MEDS: ATORVASTATIN 10 MG TABLET PO SCH (20:47)
[2020-05-23 08:03] VITALS: BP 108/49
[2020-05-23] MEDS: OXYBUTYNIN CHLORIDE 5 MG TABLET PO SCH ×2 (09:07→16:13)
[2020-05-23] MEDS: POLYVINYL ALCOHOL OPHT DROPS 15 ML BOTTLE EACHEYE SCH ×2 (09:07→20:43)
[2020-05-23] MEDS: CHOLECALCIFEROL 400 UNITS TABLET PO SCH (09:07)
[2020-05-23] MEDS: DIVALPROEX 500 MG TABLET.DR PO SCH ×2 (09:07→16:13)
[2020-05-23] MEDS: LITHIUM CARBONATE 300 MG CAPSULE PO SCH ×2 (09:07→20:42)
[2020-05-23] MEDS: OLANZAPINE 5 MG TABLET PO SCH ×2 (09:07→20:43)
[2020-05-23] MEDS: METOPROLOL TARTRATE 25 MG TABLET PO SCH ×2 (09:17→20:43)
[2020-05-23] MEDS: Z GUARD REMEDY PASTE 57 GM TUBE TOP SCH ×2 (09:17→20:44)
[2020-05-23 16:02] VITALS: BP 109/55
[2020-05-23 20:00] VITALS: BP 102/48
[2020-05-23] MEDS: ATORVASTATIN 10 MG TABLET PO SCH (20:42)
[2020-05-24 07:30] VITALS: BP 103/58
[2020-05-24] MEDS: DIVALPROEX 500 MG TABLET.DR PO SCH ×2 (08:16→16:39)
[2020-05-24] MEDS: OLANZAPINE 5 MG TABLET PO SCH ×2 (08:16→21:39)
[2020-05-24] MEDS: METOPROLOL TARTRATE 25 MG TABLET PO SCH ×2 (08:16→21:39)
[2020-05-24] MEDS: FERROUS SULFATE 325 MG TABEC PO SCH (08:16)
[2020-05-24] MEDS: LITHIUM CARBONATE 300 MG CAPSULE PO SCH (08:16)
[2020-05-24] MEDS: POLYVINYL ALCOHOL OPHT DROPS 15 ML BOTTLE EACHEYE SCH ×2 (08:17→21:39)
[2020-05-24] MEDS: CHOLECALCIFEROL 400 UNITS TABLET PO SCH (08:17)
[2020-05-24] MEDS: OXYBUTYNIN CHLORIDE 5 MG TABLET PO SCH ×2 (08:17→16:41)
[2020-05-24] MEDS ORDERED: LITHIUM CARBONATE 300 MG CAPSULE PO SCH (08:30)
[2020-05-24] MEDS: Z GUARD REMEDY PASTE 57 GM TUBE TOP SCH ×2 (08:31→21:39)
[2020-05-24] MEDS: LITHIUM CARBONATE 150 MG CAPSULE PO SCH ×3 (08:41→16:43)
[2020-05-24 15:42] VITALS: BP 124/63
[2020-05-24 20:58] VITALS: BP 120/45
[2020-05-24] MEDS: ATORVASTATIN 10 MG TABLET PO SCH (21:40)
[2020-05-25 07:30] VITALS: BP_SYST 113; BP_SYST 119; BP_DIAS 59; BP_DIAS 71
[2020-05-25] MEDS: DIVALPROEX 500 MG TABLET.DR PO SCH ×2 (09:11→17:12)
[2020-05-25] MEDS: METOPROLOL TARTRATE 25 MG TABLET PO SCH ×2 (09:12→20:08)
[2020-05-25] MEDS: OLANZAPINE 5 MG TABLET PO SCH ×2 (09:12→20:07)
[2020-05-25] MEDS: LITHIUM CARBONATE 150 MG CAPSULE PO SCH ×3 (09:13→17:12)
[2020-05-25] MEDS: CHOLECALCIFEROL 400 UNITS TABLET PO SCH (09:13)
[2020-05-25] MEDS: POLYVINYL ALCOHOL OPHT DROPS 15 ML BOTTLE EACHEYE SCH ×2 (09:13→20:07)
[2020-05-25] MEDS: OXYBUTYNIN CHLORIDE 5 MG TABLET PO SCH ×2 (09:14→17:12)
[2020-05-25] MEDS: Z GUARD REMEDY PASTE 57 GM TUBE TOP SCH ×2 (09:15→20:08)
[2020-05-25 16:00] VITALS: BP 95/52
[2020-05-25] MEDS: ATORVASTATIN 10 MG TABLET PO SCH (20:07)
[2020-05-25 20:14] VITALS: BP 113/53
[2020-05-26 07:30] VITALS: BP 99/52
[2020-05-26] MEDS: METOPROLOL TARTRATE 25 MG TABLET PO SCH ×2 (09:00→20:16)
[2020-05-26] MEDS: FERROUS SULFATE 325 MG TABEC PO SCH (09:19)
[2020-05-26] MEDS: DIVALPROEX 500 MG TABLET.DR PO SCH ×2 (09:19→17:35)
[2020-05-26] MEDS: CHOLECALCIFEROL 400 UNITS TABLET PO SCH (09:19)
[2020-05-26] MEDS: OXYBUTYNIN CHLORIDE 5 MG TABLET PO SCH ×2 (09:19→17:36)
[2020-05-26] MEDS: OLANZAPINE 5 MG TABLET PO SCH ×2 (09:19→20:23)
[2020-05-26] MEDS: Z GUARD REMEDY PASTE 57 GM TUBE TOP SCH ×2 (09:21→20:15)
[2020-05-26] MEDS: LITHIUM CARBONATE 150 MG CAPSULE PO SCH ×3 (09:36→17:36)
[2020-05-26] MEDS: POLYVINYL ALCOHOL OPHT DROPS 15 ML BOTTLE EACHEYE SCH ×2 (09:36→20:16)
[2020-05-26 15:54] VITALS: BP 118/71
[2020-05-26] MEDS: ATORVASTATIN 10 MG TABLET PO SCH (20:16)
[2020-05-26 20:42] VITALS: BP 84/35
[2020-05-26 22:00] VITALS: BP 122/52
[2020-05-27 07:30] VITALS: BP 117/55
[2020-05-27] MEDS: OLANZAPINE 5 MG TABLET PO SCH ×2 (08:40→20:03)
[2020-05-27] MEDS: CHOLECALCIFEROL 400 UNITS TABLET PO SCH (08:41)
[2020-05-27] MEDS: OXYBUTYNIN CHLORIDE 5 MG TABLET PO SCH ×2 (08:41→16:52)
[2020-05-27] MEDS: DIVALPROEX 500 MG TABLET.DR PO SCH ×2 (08:41→16:52)
[2020-05-27] MEDS: LITHIUM CARBONATE 150 MG CAPSULE PO SCH ×3 (08:41→16:52)
[2020-05-27] MEDS: METOPROLOL TARTRATE 25 MG TABLET PO SCH ×2 (08:41→20:02)
[2020-05-27] MEDS: Z GUARD REMEDY PASTE 57 GM TUBE TOP SCH ×2 (08:42→20:03)
[2020-05-27] MEDS: POLYVINYL ALCOHOL OPHT DROPS 15 ML BOTTLE EACHEYE SCH ×2 (08:42→20:03)
[2020-05-27 15:43] VITALS: BP 104/41
[2020-05-27] MEDS: ATORVASTATIN 10 MG TABLET PO SCH (20:02)
[2020-05-27 20:34] VITALS: BP 105/49
[2020-05-28 08:00] VITALS: BP 120/75
[2020-05-28] MEDS: FERROUS SULFATE 325 MG TABEC PO SCH (08:15)
[2020-05-28] MEDS: DIVALPROEX 500 MG TABLET.DR PO SCH ×2 (08:15→16:49)
[2020-05-28] MEDS: Z GUARD REMEDY PASTE 57 GM TUBE TOP SCH ×2 (08:16→20:45)
[2020-05-28] MEDS: POLYVINYL ALCOHOL OPHT DROPS 15 ML BOTTLE EACHEYE SCH ×2 (08:16→20:45)
[2020-05-28] MEDS: OXYBUTYNIN CHLORIDE 5 MG TABLET PO SCH ×2 (08:16→16:49)
[2020-05-28] MEDS: CHOLECALCIFEROL 400 UNITS TABLET PO SCH (08:16)
[2020-05-28] MEDS: OLANZAPINE 5 MG TABLET PO SCH ×2 (08:16→20:45)
[2020-05-28] MEDS: LITHIUM CARBONATE 150 MG CAPSULE PO SCH ×3 (08:16→16:49)
[2020-05-28] MEDS: METOPROLOL TARTRATE 25 MG TABLET PO SCH ×2 (08:17→20:45)
[2020-05-28 15:49] VITALS: BP 109/57
[2020-05-28 20:27] VITALS: BP 118/62
[2020-05-28] MEDS: ATORVASTATIN 10 MG TABLET PO SCH (20:44)
[2020-05-29] MEDS: ACETAMINOPHEN 325 MG TABLET PO PRN ×2 (01:30→20:50)
[2020-05-29 07:30] VITALS: BP 113/45
[2020-05-29] MEDS: CHOLECALCIFEROL 400 UNITS TABLET PO SCH (08:08)
[2020-05-29] MEDS: POLYVINYL ALCOHOL OPHT DROPS 15 ML BOTTLE EACHEYE SCH ×2 (08:08→20:51)
[2020-05-29] MEDS: LITHIUM CARBONATE 150 MG CAPSULE PO SCH ×3 (08:08→16:01)
[2020-05-29] MEDS: METOPROLOL TARTRATE 25 MG TABLET PO SCH ×2 (08:09→20:47)
[2020-05-29] MEDS: OXYBUTYNIN CHLORIDE 5 MG TABLET PO SCH ×2 (08:09→16:01)
[2020-05-29] MEDS: OLANZAPINE 5 MG TABLET PO SCH ×2 (08:09→20:47)
[2020-05-29] MEDS: DIVALPROEX 500 MG TABLET.DR PO SCH ×2 (08:09→16:01)
[2020-05-29] MEDS: Z GUARD REMEDY PASTE 57 GM TUBE TOP SCH ×2 (09:04→20:48)
[2020-05-29 16:00] VITALS: BP 113/41
[2020-05-29 20:46] VITALS: BP 111/42
[2020-05-29] MEDS: ATORVASTATIN 10 MG TABLET PO SCH (20:47)
[2020-05-30 08:04] VITALS: BP 132/54
[2020-05-30] MEDS: Z GUARD REMEDY PASTE 57 GM TUBE TOP SCH ×2 (09:00→20:40)
[2020-05-30] MEDS: OLANZAPINE 5 MG TABLET PO SCH ×2 (09:21→20:40)
[2020-05-30] MEDS: METOPROLOL TARTRATE 25 MG TABLET PO SCH ×2 (09:21→20:47)
[2020-05-30] MEDS: DIVALPROEX 500 MG TABLET.DR PO SCH ×2 (09:21→16:05)
[2020-05-30] MEDS: FERROUS SULFATE 325 MG TABEC PO SCH (09:22)
[2020-05-30] MEDS: CHOLECALCIFEROL 400 UNITS TABLET PO SCH (09:22)
[2020-05-30] MEDS: OXYBUTYNIN CHLORIDE 5 MG TABLET PO SCH ×2 (09:22→16:05)
[2020-05-30] MEDS: LITHIUM CARBONATE 150 MG CAPSULE PO SCH ×3 (09:22→16:05)
[2020-05-30] MEDS: POLYVINYL ALCOHOL OPHT DROPS 15 ML BOTTLE EACHEYE SCH ×2 (09:23→20:39)
[2020-05-30 16:23] VITALS: BP 118/56
[2020-05-30] MEDS: ATORVASTATIN 10 MG TABLET PO SCH (20:39)
[2020-05-30 21:36] VITALS: BP 106/46
[2020-05-31 07:30] VITALS: BP 107/63
[2020-05-31] MEDS: LITHIUM CARBONATE 150 MG CAPSULE PO SCH ×2 (08:15→12:07)
[2020-05-31] MEDS: OXYBUTYNIN CHLORIDE 5 MG TABLET PO SCH (08:15)
[2020-05-31] MEDS: CHOLECALCIFEROL 400 UNITS TABLET PO SCH (08:15)
[2020-05-31] MEDS: OLANZAPINE 5 MG TABLET PO SCH (08:15)
[2020-05-31] MEDS: DIVALPROEX 500 MG TABLET.DR PO SCH (08:15)
[2020-05-31 08:16] VITALS: BP 107/63
[2020-05-31] MEDS: METOPROLOL TARTRATE 25 MG TABLET PO SCH (08:16)
[2020-05-31] MEDS: POLYVINYL ALCOHOL OPHT DROPS 15 ML BOTTLE EACHEYE SCH (08:16)
[2020-05-31] MEDS: Z GUARD REMEDY PASTE 57 GM TUBE TOP SCH (08:16)
== END 2020-05-31 14:05 | DRG 885 ==
LOC: ER 14:25 → GPSOV3 21:14 → GPS 05-21 14:55
PROVIDERS: ADMIT Psychiatry & Neurology Psychiatry; ATTEND Internal Medicine
DX: F31.2 Bipolar disorder, current episode manic severe with psychotic features (principal); D68.69 Other thrombophilia; Z89.511 Acquired absence of right leg below knee; E78.5 Hyperlipidemia, unspecified; Z74.09 Other reduced mobility; I10 Essential (primary) hypertension; D75.89 Other specified diseases of blood and blood-forming organs; D69.6 Thrombocytopenia, unspecified; G40.909 Epilepsy, unspecified, not intractable, without status epilepticus
CPT/HCPCS: 36415; 70030-TC; 71045; 80164; 80307; 80329; 84443; 85025; 93005; G0480; G0480-TC; J1630; J2060; U0003-CS